=== PATIENT | female | born 1950 | race Caucasian/White ===

== ENCOUNTER 2022-02-22 10:40 | Outpatient (CLI) | payer MEDICARE, BC, SELFPAY | END 2022-02-22 10:41 | disposition home or self-care (01) | LOC: NFLDUCREF 03-03 10:23 | PROVIDERS: PCP Internal Medicine; Visit Provider Nurse Practitioner Family | DX: R30.0 Dysuria (principal); N39.0 Urinary tract infection, site not specified | CPT/HCPCS: 87086; 87186 ==

== ENCOUNTER 2022-03-18 10:32 | Outpatient (CLI) | payer MEDICARE, BC, SELFPAY | END 2022-03-18 10:33 | disposition home or self-care (01) | PROVIDERS: PCP Internal Medicine; Visit Provider Family Medicine | DX: R39.9 Unspecified symptoms and signs involving the genitourinary system (principal) | CPT/HCPCS: 87086; 87186 ==

== ENCOUNTER 2025-02-06 20:25 | Emergency (ER) | payer MEDICARE, BC, SELFPAY ==
--- OUTSIDE RECORDS SUMMARY | 2024-12-28 14:00 | XMS_ITS | Encounter Summary ---
[facility] Address [address] [place] [address] Care Team Providers Care Embossed Or Impressed Lettering Painter Name Role Phone Jane Blanca M.D. Primary Care Provider [phone] Reason for Referral * Outpatient (Routine) - Closed Specialty Diagnoses / Procedures Referred By Mukesh ugarte Referred To Contact Diagnoses Pain Neck Procedures US Head Neck Soft Tissue Jane Blanca M.D. [address] [place] [address] Phone: tel: fax: [facility] Region Referral ID Status Reason Start Date Expiration Date Visits Re quested Visits Authorized [id number] Closed 12/28/2024 03/30/2026 1 1 * Gastrointestinal (Routine) - Authorized Specialty Diagnoses / Procedures Referred By Mukesh ugarte Referred To Contact Diagnoses Polyp Of Stomach And Duodenum Procedures Enteroscopy Thru Stoma Jane Blanca M.D. [address] [place] [address] Phone: tel: fax: [facility] Referral ID Status Reason Start Date Expiration Date V isits Requested Visits Authorized [id number] Authorized 12/28/2024 03/30/2026 1 1 * Outpatient (Routine) - Authorized Specialty Diagnoses / Procedures Referred By Mukesh ugarte Referred To Contact Physical Therapy Diagnoses Pain Neck Jane Blanca M.D. [address] [place] [address] Phone: tel: fax: Referral ID Status Reason Start Date Expiration Date V isits Requested Visits Authorized [id number] Authorized 12/28/2024 06/29/2026 1 1 Reason for Visit * Reason Comments Neck Pain Headaches, dry mouth and not sleeping well * Appointment Request (Routine) - Closed Specialty Diagnoses / Procedures Referred By Mukesh ugarte Referred To Contact Family Medicine Referral ID Status Reason Start Date Expiration Date Visits Re quested Visits Authorized [id number] Closed 12/21/2024 03/23/2026 1 1 Encounter Details Date Type Department Care Team (Late st Contact Info) Description 12/28/2024 3:00 PM CDT Office Visit Department of Family Medicine, [facility], in [place], [place] [address] [place] [phone] Jane Blanca M.D. [address] [place] [phone] Pain Neck (Primary Dx); Lymphadenopathy; Polyp Of Stomach And Duodenum; Headache Unspecified; Insomnia; Dry Mouth Unspecified Social History Tobacco Use Types Packs/Day Years Used Date Smoking Tobacco: Never Smokeless Tobacco: Never Tobacco Cessation:Counseling Given: Not Answered Alcohol Use Standard Drinks/Week Comments Yes 2 (1 standard drink = 0.6 oz pur e alcohol) [facility] Utilities Answer Date Recorded In the past 12 months has [facility] [employer], gas, oil, or water [employer] threatened to shut off services in your home? No 09/28/2024 Humiliation, Afraid, Rape, and Kick questionnair e Answer Date Recorded Within the last year, have y ou been afraid of your partner or ex-partner? No 05/30/2024 Within the last year, have y ou been humiliated or emotionally abused in other ways by your partner or ex-partner? No Within the last year, have y ou been kicked, hit, slapped, or otherwise physically hurt by your partner or ex-partner? No 05/30/2024 Within the last year, have y ou been raped or forced to have any kind of sexual activity by your partner or ex-partner? No 05/30/2024 Hunger Vital Sign Answer Date Recorded Within the past 12 months, y ou worried that your food would run out before you got the money to buy more. Never true 09/29/19 Within the past 12 months, t he food you bought just didn't last and you didn't have money to get more. Never true 09/28/2024 PRAPARE - Transportation Answer Date Re corded In the past 12 months, has l ack of transportation kept you from medical appointments or from getting medications? No 09/12 In the past 12 months, has l ack of transportation kept you from meetings, work, or from getting things needed for daily living? No 09/28/2024 Housing Stability Answer Date Recorded What is your living situation today? I have a [facility] place to live 09/28/2024 Education Answer Date Recorded What is the highest level of school you have completed or the highest degree you have received? 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 Gender Identity Female 12/08/2019 3:03 PM CDT Sexual Orientation Straight 12/08/2019 3: 03 PM CDT documented as of this encounter Last Filed Vital Signs Vital Sign Reading Time Taken Comments Blood Pressure 104/70 12/28/2024 2:[address] rage Pulse 89 12/28/2024 2:51 PM CDT Temperature 36.5 C (97.7 F) 12/28/2024 2:51 PM CDT Respiratory Rate 16 12/28/2024 2:51 PM CDT Oxygen Saturation - - Inhaled Oxygen Concentration - - Weight 76.5 kg (168 lb 12.2 oz) 12/28/2024 2:51 PM CDT Height 164 cm (5' 4.57) 12/28/2024 2:51 PM CDT Body Mass Index 28.46 12/28/2024 2:51 PM CDT documented in this encounter Progress Notes * Jane Blanca M.D. - 12/28/2024 3:00 PM CDT DATE OF VISIT: 12/28/2024 SUBJECTIVE CHIEF COMPLAINT / REASON FOR VISIT Magnolia Blank is a 74 y.o. female with past medical history significant for anxiety, osteoporosis, skin cancer, hyperlipidemia, atrial hernia, GERD, duodenal polyps, cecal polyps, colonic polyps, diverticulosis, dry eye syndrome, status post TVH, BSO, vaginal colpopexy, anterior vaginal repair, and posterior vaginal repai who presents for evaluation of Neck Pain (Headaches, dry mouth and not sleeping well). The patient verbally consented to an audio recording of their visit to assist with the completion of documentation. History of Present Illness Mrs. Magnolia Blank is a 74 year old female who presents with neck pain and severe dry mouth. Neck pain - Neck pain present for approximately 5-6 months, onset following surgery in May - Pain described as stinging and burning, primarily on the right side - Associated with sensation of 'stiff neck' and tight, burning muscles - Pain is intermittent, lasting from seconds to about half an hour - Pain intensity ranges from 1 to 6 on a pain scale - No relief with changing pillows (tried twice) - No use of [id number] medications for pain - No numbness or tingling in arms or hands - No pain with specific neck movements Xerostomia (dry mouth) - Severe dry mouth since May, primarily nocturnal - No symptoms of dehydration - Reduced water intake due to bladder issues post-hysterectomy - History of Vesicare and Myrbetriq use, discontinued due to side effects - Currently using Xiidra for severe dry eyes, which she associates with dry mouth - Denies mouth breathing at night; (hard of hearing) has not noticed mouth breathing Headache - Dull, moving headaches located in the occipital area and both sides of the head Other associated symptoms - No vision problems - No dysphagia - No numbness or tingling in extremities - Blood pressure tends to run low OBJECTIVE VITAL SIGNS BP 104/70 (BP Location: Left arm, Patient Position: Sitting, Cuff Size: Regular) Comment: average Pulse 89 Temp 36.5 ??C (Temporal) Resp 16 Ht 164 cm Wt 76.5 kg BMI 28.46 kg/m?? Physical Exam Constitutional Appearance: She is well-developed. HENT Head: Normocephalic and atraumatic. Comments: Approximately 2 cm lymph node noticed on the right side of the neck with tenderness. There is 1 cm on the other side. Otherwise no lymphadenopathy noted Right Ear: External ear normal. Left Ear: External ear normal. Nose: Nose normal. Eyes Conjunctiva/sclera: Conjunctivae normal. Pupils: Pupils are equal, round, and reactive to light. Cardiovascular Rate and Rhythm: Normal rate and regular rhythm. Heart sounds: Normal heart sounds. Pulmonary Effort: Pulmonary effort is normal. No respiratory distress. Breath sounds: Normal breath sounds. Abdominal General: Bowel sounds are normal. There is no distension. Palpations: Abdomen is soft. There is no mass. Tenderness: There is no abdominal tenderness. There is no guarding. Musculoskeletal General: Normal range of motion. Cervical back: Normal range of motion and neck supple. Skin General: Skin is warm and dry. Neurological Mental Status: She is alert and oriented to person, place, and time. Deep Tendon Reflexes: Reflexes are normal and symmetric. Psychiatric Behavior: Behavior normal. ASSESSMENT/ PLAN Pain Neck Lymphadenopathy Tender lymph nodes on the right side of the neck, present for approximately six months. Differential diagnosis includes infection or malignancy. . Ultrasound and blood work planned to rule out serious conditions. - Order ultrasound of the neck to evaluate lymph nodes - Perform blood work including CRP and infectious mononucleosis test - Swab for strep throat Orders: External referral ancillary (non-[place]) CBC with Differential, Blood; Future Group A Streptococcus PCR, Throat US Head Neck Soft Tissue; Future Infectious Mononucleosis, Rapid Test; Future CRP (C-Reactive Protein); Future Polyp Of Stomach And Duodenum Orders: Enteroscopy Thru Stoma; Future Tubular adenoma and duodenal polyps. Previous colonoscopy in 2021 showed diverticulitis, with a recommendation to repeat in five years. Endoscopy in 2021 recommended a repeat small bowel enteroscopy in three years for surveillance of duodenal polyps. She agreed to proceed with the recommended surveillance. - Schedule small bowel enteroscopy in February for surveillance of duodenal polyps Headache Unspecified Insomnia Dull, bilateral headache, possibly related to dehydration and hypotension. Decreased fluid intake and frequent nocturia post-hysterectomy may contribute to dehydration. Magnesium glycinate suggested as a non-prescription option to aid sleep and potentially reduce headache frequency. Patient preferred supplements over medications. - Encourage increased fluid intake during the day - Consider magnesium glycinate 400 mg in the evening to aid sleep and potentially reduce headache frequency Dry Mouth Unspecified Severe dry mouth primarily at night. Decreased fluid intake during the day may contribute to nighttime dryness. Nocturnal mouth breathing suspected. History of dry eyes and use of medications that can cause dry mouth, but these have been discontinued. Mouth taping and humidifier use suggested as initial non-invasive interventions. - Advise mouth taping at night to prevent mouth breathing - Recommend use of a humidifier at night - Encourage increased fluid intake during the day, aiming for 64 ounces documented in this encounter Plan of Treatment Upcoming Encounters Date Type Department Care Team (Late st Contact Info) Description 10/01/2025 9:00 AM CDT Office Visit Department of Family Medicine, [facility], in [address] [phone] Jane Blanca M.D. [address] [place] [phone] Scheduled Orders Name Type Priority Associated Diagnoses Orde r Schedule Enteroscopy Thru Stoma GI Routine Polyp Of Stomach And Duodenum Expected: 12/28/2024, Expires: 03/30/2026 documented as of this encounter Procedures Procedure Name Priority Date/Time Associated Diagnosis Comments GROUP A STREP PCR, THROAT Routine 12/28/2024 3:41 PM CDT Lymphadenopathy documented in this encounter Results * US Head Neck Soft Tissue (01/01/2025 2:57 PM CDT) Anatomical Region Laterality Modality Head and Neck, Ultrasound RS T LOS, Ultrasound ARZ LOS, Ultrasound FLA LOS N/A Ultrasound Impressions 01/01/2025 3:33 PM CDT Targeted ultrasound of the right and left neck demonstrates multiple benign- appearing subcentimeter cervical lymph nodes with normal fatty robi. No worrisome sonographic findings. Narrative 01/01/2025 3:33 PM CDT EXAM: US HEAD NECK SOFT TISSUE COMPARISON: None FINDINGS: See impression. Procedure Note Lefty Fernandez M.D. - 01/01/2025 EXAM: US HEAD NECK SOFT TISSUE COMPARISON: None FINDINGS: See impression. IMPRESSION: Targeted ultrasound of the right and left neck demonstrates multiplebenign- appearing subcentimeter cervical lymph nodes with normal fattyhila. No worrisome sonographic findings. us Jane Blanca M.D. IMG US PROCEDURES Final Resu lt * (ABNORMAL) CRP (C-Reactive Protein) (12/28/2024 4:07 PM CDT) C-Reactive Protein (CRP), P 5.1(H) <5.0 mg/L 12/28/2024 6:05 PM CDT OWAT Blood (Blood, Venous) 12/28/2024 4:07 PM CDT 12/28/2024 5:48 PM CDT us Jane Blanca M.D. LAB BLOOD ADD-ON Final Resul t [facility] [address] [place] [address], [facility] in [place] [address] [place] [address] * Infectious Mononucleosis, Rapid Test (12/28/2024 4:07 PM CDT) Infectious Geary Test, B Negative Negative 12/28/2024 6:11 PM CDT OWAT Blood (Blood, Venous) 12/28/2024 4:07 PM CDT 12/28/2024 5:53 PM CDT us Jane Blanca M.D. LAB MICROBIOLOGY - BLOOD ORD ERABLES Final Result [facility] [address] [place] [address], [place] [facility] in [place] [address] [place] [address] * CBC with Differential, Blood (12/28/2024 4:07 PM CDT) Hemoglobin 13.9 11.6 - 15.0 g/dL 12/28/2024 5:57 PM CDT OWAT Hematocrit 42.4 35.5 - 44.9 % 12/28/2024 5:57 PM CDT OWAT Erythrocytes 4.47 3.92 - 5.13 x10(12)/L 12/28/2024 5:57 PM CDT OWAT MCV 94.9 78.2 - 97.9 fL 12/28/2024 5:57 PM CDT OWAT RBC Distrib Width 12.7 12.2 - 16.1 % 12/28/2024 5:57 PM CDT OWAT Platelet Count 279 157 - 371 x10(9)/L 12/28/2024 5:57 PM CDT OWAT Leukocytes 6.3 3.4 - 9.6 x10(9)/L 12/28/2024 5:57 PM CDT OWAT Neutrophils 3.63 1.56 - 6.45 x10(9)/L 12/28/2024 5:57 PM CDT OWAT Lymphocytes 2.06 0.95 - 3.07 x10(9)/L 12/28/2024 5:57 PM CDT OWAT Monocytes 0.46 0.26 - 0.81 x10(9)/L 12/28/2024 5:57 PM CDT OWAT Eosinophils 0.15 0.03 - 0.48 x10(9)/L 12/28/2024 5:57 PM CDT OWAT Basophils <0.03 0.01 - 0.08 x10(9)/L 12/28/2024 5:57 PM CDT OWAT Blood (Blood, Venous) 12/28/2024 4:07 PM CDT 12/28/2024 5:53 PM CDT us Jane Blanca M.D. LAB BLOOD ADD-ON Final Resul t Performing Organization Address City/[facility]/ZIP Co de Phone Number [facility] [address] [place] [address], [place] [facility] [facility] in [place] [address] [place] [address] * Group A Streptococcus PCR, Throat (12/28/2024 3:41 PM CDT) Group A Streptococcus PCR, Throat Negative Negative 12/28/2024 6:31 PM CDT OWAT Swab (Throat) 12/28/2024 3:4 1 PM CDT 12/28/2024 5:46 PM CDT us Jane Blanca M.D. LAB MICROBIOLOGY - GENERAL O RDERABLES Final Result Performing Organization Address City/[facility] Co de Phone Number [facility] [address] [place] [address], [place] [facility] [facility] in [place] [address] [place] [address] documented in this encounter Visit Diagnoses Diagnosis Pain Neck- Primary Lymphadenopathy Polyp Of Stomach And Duodenum Headache Unspecified Insomnia Dry Mouth Unspecified Pain Neck documented in this encounter Care Teams Embossed Or Impressed Lettering Painter Relationship Specialty Start Date End Date Jane Blanca M.D. [address] [place] [address] Reza ARNALDO [place] [phone] PCP - General Family Medicine 07/16/22 [facility] 09/29/23 documented as of this encounter
--- OUTSIDE RECORDS SUMMARY | 2024-12-28 14:50 | XMS_ITS | Encounter Summary ---
Author Organization [facility] Address [address] [place] [address] Care Team Providers Care Industrial Renderer Name Role Phone Jane Blanca M.D. Primary Care Provider [phone] Encounter Details Date Type Department Care Team (Latest Contact Info) Description 12/28/2024 3:50 PM CDT - 12/28/2024 11:59 PM CDT Hospital Encounter Department of Laboratory Medicine in [place], [place] [address] [place] [phone] Jane Blanca M.D. [address] [place] [address] Lymphadenopathy; Pain Neck Discharge Disposition: Home or Self Care Social History Tobacco Use Types Packs/Day Years Used Date Smoking Tobacco: Never Smokeless Tobacco: Never Alcohol Use Standard Drinks/Week Comments Yes 2 (1 standard drink = 0.6 oz pur e alcohol) [facility] Utilities Answer Date Recorded In the past 12 months has e electric, gas, oil, or water company threatened to shut off services in your [...] money to buy more. Never true 09/29/19 25 Within the past 12 months, t he [...] your living situation today? I have a [facility] place to live 09/28/2024 Education Answer Date Recorded What is the highest level of school you have completed or the highest degree you have received? 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 05/30/2024 ascorbic acid, vitamin C, (VITAMIN C) 1,000 mg tablet Take by mouth daily. 08/24/2007 calcium carbonate/vitam in D3 (CALCIUM 600 + D,3, ORAL) Take by mouth daily. 05/10/2007 carboxymethylce llulose sodium (REFRESH CELLUVISC OPHT) Administer 1 drop into affected eye(s) as needed. diclofenac sodium (Voltaren) 1 % gel Apply 2 g topically as needed. EPINEPHrine 0.3 mg/0.3 mL injection syringe Inject 0.3 mL (0.3 mg total) intramuscularly as needed for anaphylaxis. 2 each 3 07/21/2024 hydroquinone 4 % cream Apply to dark spots on face one time daily at bedtime for 3 months. Then take one month break.* 11/11/2023 ibuprofen 200 mg tablet Take 1-2 tablets (200-400 mg total) by mouth every 6 (six) hours as needed for pain. 05/30/2024 lifitegrast (Xiidra) 5 % ophthalmic solution Administer 1 drop into both eyes 2 (two) times a day. 180 each 3 11/03/2024 multivitamin (MULTIPLE VITAMIN ESSENTIAL ORAL) Take by mouth daily. 04/28/2007 omega 4-sal-ugw-fish oil (Fish Oil) 100-160-1,000 mg capsule Take by mouth daily. 05/10/2007 polyvinyl alcohol/povidon e/PF (REFRESH CLASSIC, PF, OPHT) Administer 1 drop into affected eye(s) as needed (Dry Eye). rosuvastatin (Crestor) 5 mg tablet TAKE ONE TABLET BY MOUTH ONE TIME DAILY 90 tablet 3 08/08/2024 estradioL (Estrace) 0.1 mg/g (0.01%) vaginal creamIndication s:Prolapse Vaginal,Cystoce le Midline Apply 1 gram to vaginal opening at bedtime twice a week. 42.5 g 3 01/04/2024 01/26/20 25 white petrolatum-mine ral oiL 94-3 % ointment Apply 0.25 inches to both eyes 3 (three) times a day as needed (Dry Eye). 01/17/20 25 documented as of this encounter Plan of Treatment Upcoming Encounters Date Type Department Care Team (Late st Contact Info) Description 10/01/2025 9:00 AM CDT Office Visit Department of Family Medicine, [facility], in [place] [address] [place] [phone] Jane Blanca M.D. [address] [place] [address] [place] [phone] documented as of this encounter Procedures Procedure Name Priority Date/Time Associated Diagnosis Comments INFECTIOUS MONONUCLEOSIS, RAPID TEST, S/B Routine 12/28/2024 4:07 PM CDT Pain Neck CBC WITH DIFFERENTIAL, B Routine 12/28/2024 4:07 PM CDT Lymphadenopathy C-REACTIVE PROTEIN (CRP), S/P Routine 12/28/2024 4:07 PM CDT Pain Neck documented in this encounter Results * (ABNORMAL) CRP (C-Reactive Protein) (12/28/2024 4:07 PM CDT) C-Reactive Protein (CRP), P 5.1(H) <5.0 mg/L 12/28/2024 6:05 PM CDT OWAT Blood (Blood, Venous) 12/28/2024 4:07 PM CDT 12/28/2024 5:48 PM CDT us Jane Blanca M.D. LAB BLOOD ADD-ON Final Resul t [facility] [address] [place] [address], [place] [facility] in [place] [address] [place] [address] * Infectious Mononucleosis, Rapid Test (12/28/2024 4:07 PM CDT) Infectious Foster Test, B Negative Negative 12/28/2024 6:11 PM CDT OWAT Blood (Blood, Venous) 12/28/2024 4:07 PM CDT 12/28/2024 5:53 PM CDT us Jane Blanca M.D. LAB MICROBIOLOGY - BLOOD ORD ERABLES Final Result [facility] [address] [place] [address], [place] [facility] [facility] [place] [address] [place] [address] * CBC with Differential, Blood (12/28/2024 4:07 [...] CDT 12/28/2024 5:53 PM CDT us Jane Blacna M.D. LAB BLOOD ADD-ON Final Resul t [facility] [address] [place] [address], [facility] in [place] [address] [place] [address] documented in this encounter Visit Diagnoses Diagnosis Lymphadenopathy Pain Neck documented in this encounter Care Teams Industrial Renderer Relationship Specialty Start Date End Date Jane Blanca M.D. [address] [place] [phone] PCP - General Family Medicine 07/16/22 [facility] 09/29/23 documented as of this encounter
--- OUTSIDE RECORDS SUMMARY | 2025-01-01 13:21 | XMS_ITS | Encounter Summary ---
Author Organization [facility] Address [address] [place] [address] Care Team Providers Care Grain Elevator Motor Starter Name Role Phone Jane Blanca M.D. Primary Care Provider Reason for Referral * Outpatient (Routine) - Closed Specialty Diagnoses / Procedures Referred By Mukesh ugarte Referred To Contact Diagnoses Pain Neck Procedures US Head Neck Soft Tissue Jane Blanca M.D. [address] [place] [address] Phone: tel: fax: [facility] Region Referral ID Status Reason Start Date Expiration Date Visits Re quested Visits Authorized [id number] Closed 12/28/2024 03/30/2026 1 1 Reason for Visit * Outpatient (Routine) - Closed Specialty Diagnoses / Procedures Referred By Mukesh ugarte Referred To Contact Diagnoses Pain Neck Procedures US Head Neck Soft Tissue Jane Blanca M.D. [address] [place] [address] Phone: tel: fax: [facility] Region Referral ID Status Reason Start Date Expiration Date Visits Re quested Visits Authorized [id number] Closed 12/28/2024 03/30/2026 1 1 Encounter Details Date Type Department Care Team (Latest Contact Info) Description 01/01/2025 2:21 PM CDT - 01/01/2025 11:59 PM CDT Hospital Encounter Department of Radiology in [place], [place] [address] [place] [address] Jane Blanca M.D. [address] [place] [address] Pain Neck Discharge Disposition: Home or Self Care Social History Tobacco Use Types Packs/Day Years Used Date Smoking Tobacco: Never Smokeless Tobacco: Never Alcohol Use Standard Drinks/Week Comments Yes 2 (1 standard drink = 0.6 oz pur e alcohol) [facility] Utilities Answer Date Recorded In the past 12 months has e [employer], gas, oil, or water [employer] threatened to shut off services in your [...] your living situation today? I have a [facility] place to live 09/28/2024 Education Answer Date Recorded What is the highest level of school you have completed or the highest degree you have received? 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 04/28/2007 omega 1-tji-nzt-fish oil (Fish Oil) 100-160-1,000 mg capsule Take [...] a week. 42.5 g 3 01/04/2024 01/26/20 white petrolatum-mine ral oiL 94-3 % ointment Apply 0.25 inches to both eyes 3 (three) times a day as needed (Dry Eye). 01/17/20 25 documented as of this encounter Plan of Treatment Upcoming Encounters Date Type Department Care Team (Late st Contact Info) Description 10/01/2025 9:00 AM CDT Office Visit Department of Family Medicine, [facility], in [address] [address] Jane Blanca M.D. [address] [place] [phone] documented as of this encounter Procedures Procedure Name Priority Date/Time Associated Diagnosis Comments US HEAD NECK SOFT TISSUE RAD - Routine (most inpatients and all outpatients) 01/01/2025 2:57 PM CDT Pain Neck documented in this encounter Results * US [...] M.D. IMG US PROCEDURES Final Resu lt documented in this encounter Visit Diagnoses Diagnosis Pain Neck documented in this encounter Care Teams Grain Elevator Motor Starter Relationship Specialty Start Date End Date Jane Blanca M.D. [address] [place] [phone] PCP - General Family Medicine 07/16/22 [facility] 09/29/23 documented as of this encounter
--- OUTSIDE RECORDS SUMMARY | 2025-01-08 09:00 | XMS_ITS | Encounter Summary ---
Author Organization [facility] Address [address] [place] [address] Care Team Providers Care Landscape Drafter Name Role Phone Jane Blanca M.D. Primary Care Provider Reason for Referral * MRI/CAT/PET Scan (Routine) - Closed Specialty Diagnoses / Procedures Referred By Mukesh ugarte Referred To Contact Radiology Diagnoses Lymphadenopathy Cervical Procedures CT Neck Soft Tissue with IV Contrast Jaz Pal P.A.-CCarolee [address] [place] [address] Phone: tel: fax: [facility] Region Referral ID Status Reason Start Date Expiration Date Visits Re quested Visits Authorized [id number] Closed 01/08/2025 04/10/2026 1 1 Reason for Visit * Outpatient (Routine) - Closed Specialty Diagnoses / Procedures Referred By Mukesh ugarte Referred To Contact Otorhinolaryngology Diagnoses Lymphadenitis Cervical Jane Blanca M.D. [address] [place] [phone] Phone: tel: fax: [facility] Region Referral ID Status Reason Start Date Expiration Date Visits Re quested Visits Authorized [id number] Closed 01/02/2025 07/04/2026 1 1 Encounter Details Date Type Department Care Team (Latest Contact Info) Description 01/08/2025 10:00 AM CDT Comprehensive Visit Department of Otorhinolaryngology in [place], [place] [address] [place] [address] Jaz Pal P.A.-C. [address] [place] [address] Lymphadenopathy Cervical (Primary Dx); Pain Neck; Xerostomia Social History Tobacco Use Types Packs/Day Years Used Date Smoking Tobacco: Never Smokeless Tobacco: Never Alcohol Use Standard Drinks/Week Comments Yes 2 (1 standard drink = 0.6 oz pur e alcohol) [facility] Utilities Answer Date Recorded In the past 12 months has [facility] [employer], gas, oil, or water [employer] threatened to shut off services in your [...] AM CDT Legal Sex Female 3:16 AM CRIPPLE CUTTER Gender Identity Female 12/08/2019 3:03 PM CDT Sexual Orientation Straight 12/08/2019 3: 03 PM CDT documented as of this encounter Consult Notes * Jaz Pal P.A.-C. - 01/08/2025 10:00 AM CDT SUBJECTIVE CHIEF COMPLAINT/REASON FOR VISIT Neck pain, fluctuating cervical adenopathy, dry mouth REFERRING PROVIDER Jane Blanca M.D. HISTORY OF PRESENT ILLNESS Magnolia Blank is seen today in consultation for evaluation of neck pain with fluctuating cervicaladenopathy. Past medical history is significant for generalized anxiety disorder, cataracts, ulcerative colitis, dry eyes, GERD, hyperlipidemia. Approximately 5-6 months ago patient began to notice neck aching and tenderness. This fluctuates inseverity and sometimes will resolve, but is present more than not. The right side is usually more achy than the left. Today the right posterior neck and right trapezius musculature all the way out tothe shoulder are sore and painful. This was not associated with any injury. No history of surgery to the neck or throat. Over the last several months she has also noted some fluctuating nodes or nodules in her bilateral neck. There was 1 large fluctuating mass oriented in a vertical fashion in the left neck in the past that was almost 4 cm in length per patient description. This has now resolved. She has been waking up with a very dry mouth in the mornings, this has also been present over the last half a year. She does utilize a bite guard while sleeping, has had this for 6 years. Her only new medicine is Xiidra ophthalmic solution for dry eyes. She notes the neck discomfort is present even at rest, not just with movement. No dysphagia or dysphonia. She did undergo ultrasound of head and neck 01/01/2025 which showed multiple benign-appearing subcentimeter cervical nodes with normal fatty robi, no worrisome sonographic findings. The following portions of the patient's history were reviewed: allergies, current medications, problem list, family history, medical history, social history and surgical history OBJECTIVE PHYSICAL EXAMINATION GENERAL: Patient is alert, oriented, and in no acute distress. Respirations are quiet and unlabored. Vocal quality is normal. HEAD: Normocephalic and atraumatic. Skin on head and neck normal. EARS: External ears normal bilaterally. External ear canals normal bilaterally. Tympanic membranes are normal bilaterally with clear middle ears. NOSE: External nasal exam normal. Intranasal exam reveals midline septum. No turbinate hypertrophy,polyps, or drainage. ORAL: Oral cavity, including tongue and floor of mouth, is without lesions. She appears to have normal salivary flow from both Durham's and Stensen's ducts. No palpable stones. OROPHARYNX: Tonsils without hypertrophy, erythema, or exudate. NASOPHARYNX: Indirect examination reveals nothing obstructive. Oropharynx and nasopharynx are both slightly dry. LARYNX: Indirect laryngoscopy reveals normal larynx and hypopharynx. Vocal cord mobility is normal to the midline. NECK: Palpation of neck reveals no masses, adenopathy, or asymmetry. No thyromegaly. She has some tenderness with palpation of sternocleidomastoid and trapezius musculature fdubl-[id number]-ecil-left. Full range of motion of cervical spine noted. ASSESSMENT / PLAN 1. Neck pain 2. Reactive lymphadenopathy 3. Xerostomia, nocturnal Thankfully I do not see anything suspicious on today's physical examination, but given the durationof time and persisting symptoms we will pursue neck CT. I will call or send a portal message with these results. If this is unremarkable would recommend physical therapy for musculoskeletal neck discomfort. She is comfortable with this plan. Jaz Pal P.A.-C. documented in this encounter Plan of Treatment Upcoming Encounters Date Type Department Care Team (Late st Contact Info) Description 10/01/2025 9:00 AM CDT Office Visit Department of Family Medicine, [facility], in [place], [place] [address] [facility] [place] [phone] Jane Blanca M.D. [address] [place] [phone] documented as of this encounter Results * CT Neck Soft Tissue with IV Contrast (01/15/2025 2:36 PM CRIPPLE CUTTER) Anatomical Region Laterality Modality Neck, Neuroradiology RST LOS , Neuroradiology ARZ LOS, Neuroradiology FLA LOS N/A Computed Tomography 01/15/2025 2:28 PM CRIPPLE CUTTER Impressions 01/15/2025 2:58 PM CRIPPLE CUTTER No abnormal neck mass or adenopathy. Narrative 01/15/2025 2:58 PM CRIPPLE CUTTER EXAM: CT NECK SOFT TISSUE WITH IV CONTRAST COMPARISON: Ultrasound 01/01/2025 FINDINGS: No lymphadenopathy, abnormal mass or fluid collection. Major muscular, glandular and vascular structures are unremarkable. Left carotid bifurcation atherosclerosis. No acute or aggressive appearing osseous lesion. Cervical spondylosis and bilateral temporomandibular arthrosis. Visualized portions of brain and skull base are unremarkable. Intracranial atherosclerosis. Bilateral pseudophakia and left scleral buckle. Mild dependent atelectasis. Procedure Note Blaire Burks M.D. - 01/15/2025 EXAM: CT NECK SOFT TISSUE WITH IV CONTRAST COMPARISON: Ultrasound 01/01/2025 FINDINGS: No lymphadenopathy, abnormal mass or fluid collection. Majormuscular, glandular and vascular structures are unremarkable. Left carotidbifurcation atherosclerosis. No acute or aggressive appearing osseouslesion. Cervical spondylosis and bilateral temporomandibular arthrosis.Visualized portions of brain and skull base are unremarkable. Intracranialatherosclerosis. Bilateral pseudophakia and left scleral buckle. Milddependent atelectasis. IMPRESSION: No abnormal neck mass or adenopathy. us Jaz L Kae P.A.-C. IMG CT PROCEDURES Final R esult * Creatinine with Estimated GFR (01/08/2025 10:26 AM CDT) Creatinine 0.70 0.59 - 1.04 mg/dL 01/08/2025 1:48 PM CDT OWAT Estimated GFR (eGFR) >90 >=60 mL/min/BSA 01/08/2025 1:48 PM CDT OWAT Comment: Estimated GFR calculated using the 2020 CKD_EPI creatinine equation. Blood (Blood, Venous) 01/08/2025 10:26 AM CDT 01/08/2025 1:06 PM CDT us Jaz Pal P.A.-C. LAB BLOOD ADD-ON Final Re sult Performing Organization Address City/[facility]/ZIP Co de Phone Number [facility] [address] [place] [address], [facility] OWAT [facility] [place] [address] [place] [address] documented in this encounter Visit Diagnoses Diagnosis Lymphadenopathy Cervical- Primary Pain Neck Xerostomia Lymphadenopathy Cervical documented in this encounter Care Teams Landscape Drafter Relationship Specialty Start Date End Date Jane Blanca M.D. [address] [place] [phone] PCP - General Family Medicine 07/16/22 [facility] 09/29/23 documented as of this encounter
--- OUTSIDE RECORDS SUMMARY | 2025-01-08 09:19 | XMS_ITS | Encounter Summary ---
Author Organization [facility] Address [address] [place] [address] Care Team Providers Care Gas Cutting Machine Operator Name Role Phone Jane Blanca M.D. Primary Care Provider Encounter Details Date Type Department Care Team (Latest Contact Info) Description 01/08/2025 10:19 AM CDT - 01/08/2025 11:59 PM CDT Hospital Encounter Department of Laboratory Medicine in [place], [place] [address] [place] [phone] Jaz Pal, P.ACarolee-CCarolee [address] [place] [phone] Lymphadenopathy Cervical Discharge Disposition: Home or Self Care Social History Tobacco Use Types Packs/Day Years Used Date Smoking Tobacco: Never Smokeless Tobacco: Never Alcohol Use Standard Drinks/Week Comments Yes 2 (1 standard drink = 0.6 oz pur e alcohol) [facility] Utilities Answer Date Recorded In the [...] your living situation today? I have a [facility] place to live 09/28/2024 Education Answer Date Recorded What is the highest level of school you have completed or the highest degree you have received? Some college, no degree 11/22/2021 Comments No Sex and Gender Information Value Date Recorded Sex Assigned at Female 12/05/2020 9:17 AM CDT Legal Sex Female 3:16 AM HAT PARTS CUTTER MACHINE Gender Identity Female 12/08/2019 3:03 PM CDT [...] ORAL) Take by mouth daily. 04/28/2007 omega 5-pgr-xag-fish oil (Fish Oil) 100-160-1,000 mg capsule Take [...] Office Visit Department of Family Medicine, [facility], [address] [phone] Jane Blanca M.D. [address] [facility] [place] [phone] documented as of this encounter Procedures Procedure Name Priority Date/Time Associated Diagnosis Comments CREATININE WITH EGFR, S/P Routine 01/08/2025 10:26 AM CDT Lymphadenopathy Cervical documented in this encounter Results * Creatinine with Estimated GFR (01/08/2025 10:26 AM CDT) Creatinine 0.70 0.59 - 1.04 mg/dL 01/08/2025 1:48 PM CDT OWAT Estimated GFR (eGFR) >90 >=60 mL/min/BSA 01/08/2025 1:48 PM CDT OWAT Comment: Estimated GFR calculated using the 2020 CKD_EPI creatinine equation. Blood (Blood, Venous) 01/08/2025 10:26 AM CDT 01/08/2025 1:06 PM CDT us Jaz Pal P.A.-C. LAB BLOOD ADD-ON Final Re sult [facility] [address] [place] [address], [facility] OWAT [facility] in [place] [address] [place] [address] documented in this encounter Visit Diagnoses Diagnosis Lymphadenopathy Cervical documented in this encounter Care Teams Gas Cutting Machine Operator Relationship Specialty Start Date End Date Jane Blanca M.D. [address] [facility] [place] [phone] PCP - General Family Medicine 07/16/22 [facility] 09/29/23 documented as of this encounter
--- OUTSIDE RECORDS SUMMARY | 2025-01-15 13:59 | XMS_ITS | Encounter Summary ---
Author Organization [facility] Address [address] [place] [address] Care Team Providers Care Learning Program Manager Name Role Phone Jane Blanca M.D. Primary Care Provider [phone] Reason for Referral * MRI/CAT/PET Scan (Routine) - Closed Specialty Diagnoses / Procedures Referred By Mukesh ugarte Referred To Contact Radiology Diagnoses Lymphadenopathy Cervical Procedures CT Neck Soft Tissue with IV Contrast Jaz Pal P.A.-C. [address] [place] [phone] Phone: tel: fax: [facility] Region Referral ID Status Reason Start Date Expiration Date Visits Re quested Visits Authorized [id number] Closed 01/08/2025 04/10/2026 1 1 CH GRINDER Reason for Visit * MRI/CAT/PET Scan (Routine) - Closed Specialty Diagnoses / Procedures Referred By Mukesh ugarte Referred To Contact Radiology Diagnoses Lymphadenopathy Cervical Procedures CT Neck Soft Tissue with IV Contrast Jaz Pal P.A.-CCarolee [address] [place] [phone] Phone: tel: fax: [facility] Region Referral ID Status Reason Start Date Expiration Date Visits Re quested Visits Authorized [id number] Closed 01/08/2025 04/10/2026 1 1 Encounter Details Date Type Department Care Team (Latest Contact Info) Description 01/15/2025 1:59 PM BROACH GRINDER - 01/15/2025 11:59 PM BROACH GRINDER Hospital Encounter Department of Radiology in [place], [place] [address] [place] [address] Jaz Pal P.A.-C. [address] [place] [address] Lymphadenopathy Cervical Discharge Disposition: Home or Self Care Social History Tobacco Use Types Packs/Day Years Used Date Smoking Tobacco: Never Smokeless Tobacco: Never Alcohol Use Standard Drinks/Week Comments Yes 2 (1 standard drink = 0.6 oz pur e alcohol) [facility] Utilities Answer Date Recorded In the past 12 months has e electric, gas, oil, or water [employer] threatened to shut off services in your [...] your living situation today? I have a [facility] place to live 09/28/2024 Education Answer Date Recorded What is the highest level of school you have completed or the highest degree you have received? Some college, no degree 11/22/2021 Comments No Sex and Gender Information Value Date Recorded Sex Assigned at Female 12/05/2020 9:17 AM CDT Legal Sex Female 3:16 AM BROACH GRINDER Gender Identity Female 12/08/2019 3:03 PM CDT [...] ORAL) Take by mouth daily. 04/28/2007 omega 3-zie-zak-fish oil (Fish Oil) 100-160-1,000 mg capsule Take [...] Office Visit Department of Family Medicine, [facility], in [address] [phone] Jane Blanca M.D. [address] [place] [phone] documented as of this encounter Procedures Procedure Name Priority Date/Time Associated Diagnosis Comments CT NECK SOFT TISSUE WITH IV CONTRAST RAD - Routine (most inpatients and all outpatients) 01/15/2025 2:36 PM BROACH GRINDER Lymphadenopathy Cervical documented in this encounter Results * CT Neck Soft Tissue with IV Contrast (01/15/2025 2:36 PM BROACH GRINDER) Anatomical Region Laterality Modality Neck, Neuroradiology RST LOS , Neuroradiology ARZ LOS, Neuroradiology FLA LOS N/A Computed Tomography 01/15/2025 2:28 PM BROACH GRINDER Impressions 01/15/2025 2:58 PM BROACH GRINDER No abnormal neck mass or adenopathy. Narrative 01/15/2025 2:58 PM BROACH GRINDER EXAM: CT NECK SOFT TISSUE WITH IV [...] IMPRESSION: No abnormal neck mass or adenopathy. Jaz Pal P.A.-C. IMG CT PROCEDURES Final R esult documented in this encounter Visit Diagnoses Diagnosis Lymphadenopathy Cervical documented in this encounter Administered Medications Inactive Administered Medications - up to 3 most recent administrations Medication Order MAR Action Action Date Dose Rate Site iohexoL 300 mg iodine/mL solution 120 mL (Omnipaque) 120 mL, intravenous, Once in imaging, contrast, Starting on 01/15/25 at 1410, For 1 dose Given 01/15/2025 2:25 PM BROACH GRINDER 120 mL sodium chloride 0.9 % flush 60 mL 60 mL, intravenous, Once, On 01/15/25 at 1430, For 1 dose Given 01/15/2025 2:25 PM BROACH GRINDER 60 mL sodium chloride 0.9 % injection 10 mL 10 mL, intravenous, Once, On 01/15/25 at 1430, For 1 dose Given 01/15/2025 2:25 PM BROACH GRINDER 10 mL documented in this encounter Care Teams Learning Program Manager Relationship Specialty Start Date End Date Jane Blanca M.D. [address] [place] [address] [place] [phone] PCP - General Family Medicine 07/16/22 [facility] Dentistry 09/29/23 documented as of this encounter
--- OUTSIDE RECORDS SUMMARY | 2025-01-16 08:45 | XMS_ITS | Encounter Summary ---
Author Organization [facility] Address [address] [place] [address] Care Team Providers Care Tool Grinder Operator Name Role Phone Jane Blanca M.D. Primary Care Provider [phone] Reason for Referral * Outpatient (Routine) - Authorized Specialty Diagnoses / Procedures Referred By Mukesh ugarte Referred To Contact Ophthalmology Je Lozano Jr., M.D. [address] [place] [phone] Phone: tel: fax: [facility] Region Referral ID Status Reason Start Date Expiration Date V isits Requested Visits Authorized [id number] Authorized 01/16/2025 07/18/2026 1 1 ICANIZATION TEACHER Reason for Visit * Reason Comments Dry Eye * Outpatient (Routine) - Closed Specialty Diagnoses / Procedures Referred By Mukesh ugarte Referred To Contact Ophthalmology Tommy Antoine M.D. [address] [place] [phone] Phone: tel: fax: Je Lozano Jr., M.D. [address] [phone] Phone: tel: fax: Referral ID Status Reason Start Date Expiration Date Visits Re quested Visits Authorized [id number] Closed 07/12/2024 01/11/2026 1 1 Encounter Details Date Type Department Care Team (Latest Contact Info) Description 01/16/2025 8:45 AM AMERICANIZATION TEACHER Office Visit Department of Ophthalmology in [place], [place] [address] [phone] Je Lozano Jr., M.D. [address] [phone] Dry Eye Syndrome Bilateral (Primary Dx); Intraocular Lens Implant Status Post; Scleral Buckle Status Post Social History Tobacco Use Types Packs/Day Years Used Date Smoking Tobacco: Never Smokeless Tobacco: Never Alcohol Use Standard Drinks/Week Comments Yes 2 (1 standard drink = 0.6 oz pur e alcohol) [facility] Utilities Answer Date Recorded In the past [address] [facility] electric, gas, oil, or water [employer] threatened to shut off services in your [...] your living situation today? I have a [place] place to live 09/28/2024 Education Answer Date Recorded What is the highest level of school you have completed or the highest degree you have received? Some college, no degree 11/22/2021 Comments No Sex and Gender Information Value Date Recorded Sex Assigned at Female 12/05/2020 9:17 AM CDT Legal Sex Female 3:16 AM AMERICANIZATION TEACHER Gender Identity Female 12/08/2019 3:03 PM CDT Sexual Orientation Straight 12/08/2019 3: 03 PM CDT documented as of this encounter Progress Notes * Je Lozano Jr., M.D. - 01/16/2025 8:45 AM CST Magnolia Blank was seen today for Dry Eye #1 Dry Eye Syndrome Bilateral #2 Intraocular Lens Implant Status Post #3 Scleral Buckle Status Post #1 Doing well Continue xiidra, tears, face mask at night #2 New glasses if desired #3 Stable Rto 4-6 months ICANIZATION TEACHER documented in this encounter Plan of Treatment Upcoming Encounters Date Type Department Care Team (Late st Contact Info) Description 10/01/2025 9:00 AM CDT Office Visit Department of Family Medicine, [facility], in [address] [phone] Jane Blanca M.D. [address] [place] [address] Scheduled Referrals Name Type Priority Associated Diagnoses Order Schedule Ophthalmology office visit (clinic): Self; General Outpatient Referral Routine Expected: 07/16/2025, Expires: 04/18/2026 documented as of this encounter Visit Diagnoses Diagnosis Dry Eye Syndrome Bilateral- Primary Intraocular Lens Implant Status Post Scleral Buckle Status Post documented in this encounter Care Teams Tool Grinder Operator Relationship Specialty Start Date End Date Jane Blanca M.D. [address] [place] [phone] PCP - General Family Medicine 07/16/22 [facility] Dent[facility] 09/29/23 documented as of this encounter
--- OUTSIDE RECORDS SUMMARY | 2025-01-25 11:55 | XMS_ITS | Encounter Summary ---
Author Organization [facility] Address [address] [place] [address] Care Team Providers Care Curtain Cutter Name Role Phone Jane Blanca M.D. Primary Care Provider Reason for Referral * Gastrointestinal (Routine) - Closed Specialty Diagnoses / Procedures Referred By Mukesh ugarte Referred To Contact Diagnoses Polyp Of Stomach And Duodenum Procedures EGD (EsophagoGastroDuodenoscopy) Jane Blanca M.D. [address] [place] [address] Phone: tel: fax: [facility] Referral ID Status Reason Start Date Expiration Date Visits Re quested Visits Authorized [id number] Closed 01/02/2025 04/04/2026 1 1 [facility] Reason for Visit * Gastrointestinal (Routine) - Closed Specialty Diagnoses / Procedures Referred By Mukesh ugarte Referred To Contact Diagnoses Polyp Of Stomach And Duodenum Procedures EGD (EsophagoGastroDuodenoscopy) Jane Blanca M.D. [address] [place] [address] Phone: tel: fax: [facility] Referral ID Status Reason Start Date Expiration Date Visits Re quested Visits Authorized [id number] Closed 01/02/2025 04/04/2026 1 1 Encounter Details Date Type Department Care Team (Latest Contact Info) Description 01/25/2025 11:55 AM MOLD PARTER - 01/25/2025 2:54 PM MOLD PARTER Hospital Encounter Division of Gastroenterology in [place], [place] [address] [place] [address] Jane Blanca M.D. [address] [place] [address] Alicja Awad, RIGGING UP MAN, CHANGE MANAGEMENT LEAD, DNAP [address] [place] [address] Polyp Of Stomach And Duodenum Discharge Disposition: Home or Self Care Social History Tobacco Use Types Packs/Day Years Used Date Smoking Tobacco: Never Smokeless Tobacco: Never Alcohol Use Standard Drinks/Week Comments Yes 2 (1 standard drink = 0.6 oz pur e alcohol) [facility] Utilities Answer Date Recorded In the past 12 months has e electric, gas, oil, or water [employer] threatened to shut off services in your [...] your living situation today? I have a [facility] place to live 09/28/2024 Education Answer Date Recorded What is the highest level of school you have completed or the highest degree you have received? Some college, no degree 11/22/2021 Comments No Sex and Gender Information Value Date Recorded Sex Assigned at Female 12/05/2020 9:17 AM CDT Legal Sex Female 3:16 AM MOLD PARTER Gender Identity Female 12/08/2019 3:03 PM CDT Sexual Orientation Straight 12/08/2019 3: 03 PM CDT documented as of this encounter Last Filed Vital Signs Vital Sign Reading Time Taken Comments Blood Pressure 124/80 01/25/2025 2:22 PM MOLD PARTER Pulse 62 01/25/2025 2:22 PM MOLD PARTER Temperature 36.7 C (98.1 F) 01/25/2025 2:14 PM MOLD PARTER Respiratory Rate 17 01/25/2025 2:22 PM MOLD PARTER Oxygen Saturation 98% 01/25/2025 2:22 PM MOLD PARTER Inhaled Oxygen Concentration - - Weight 76.6 kg (168 lb 14.4 oz) 025 12:16 PM MOLD PARTER Height 165.1 cm (5' 5) 01/25/2025 12:1 6 PM MOLD PARTER Body Mass Index 28.11 01/25/2025 12:16 PM MOLD PARTER documented in this encounter Medications at Time of Discharge [...] needed for anaphylaxis. 2 each 3 07/21/2024 estradioL (Estrace) 0.1 mg/g (0.01%) vaginal creamIndication s:Prolapse Vaginal,Cystoce le Midline Apply 1 gram to vaginal opening at bedtime twice a week. 42.5 g 01/25/2025 hydroquinone 4 % cream Apply to dark [...] times a day. 180 each 3 11/03/2024 mineral oil/petrolatum, white (GENTEAL PM OPHT) Administer 1 drop into affected eye(s) as needed (Dry Eye). multivitamin (MULTIPLE VITAMIN ESSENTIAL ORAL) Take by mouth daily. 04/28/2007 omega 6-gkg-wub-fish oil (Fish Oil) 100-160-1,000 mg capsule Take by mouth daily. 05/10/2007 polyvinyl alcohol/povidon e/PF (REFRESH CLASSIC, PF, OPHT) Administer 1 drop into affected eye(s) as needed (Dry Eye). rosuvastatin (Crestor) 5 mg tablet TAKE ONE TABLET BY MOUTH ONE TIME DAILY 90 tablet 3 08/08/2024 documented as of this encounter Plan of Treatment Upcoming Encounters Date Type Department Care Team (Late st Contact Info) Description 10/01/2025 9:00 AM CDT Office Visit Department of Family Medicine, [facility], in [place], [place] [address] [place] [phone] Jane Blanca M.D. [address] [place] [phone] documented as of this encounter Procedures Procedure Name Priority Date/Time Associated Diagnosis Comments UPPER GI ENDOSCOPY Routine 01/25/2025 1: 14 PM MOLD PARTER Polyp Of Stomach And Duodenum EGD (ESOPHAGOGASTRODUOD ENOSCOPY) Routine 01/25/2025 1:14 PM MOLD PARTER Polyp Of Stomach And Duodenum documented in this encounter Results * Upper GI Endoscopy (01/25/2025 1:14 PM MOLD PARTER) Anatomical Region Laterality Modality Digital Radiogra phy 01/25/2025 1:14 PM MOLD PARTER Impressions 01/25/2025 1:54 PM MOLD PARTER Post-op Diagnoses: - A tattoo was seen in the duodenum. The tattoo site appeared normal. There was no evidence of residual polyp tissue. - Normal examined duodenum. - Normal stomach. - Normal esophagus. - No specimens collected. Narrative 01/25/2025 1:54 PM MOLD PARTER Héctor 6 GI GI Patient Name: Magnolia Blank Date of : 1950 Age: 74 Procedure Date: 01/25/2025 Procedure: Upper GI endoscopy Providers: Willy Maria MD Referring Provider: Jane Blanca Pre-op Diagnoses: Follow-up of benign duodenal tumor, Prior large polyp in D3 - resected Recommendation: - The patient will be observed post-procedure, until all discharge criteria are met. - Await pathology results. - Return to referring physician. Findings: A tattoo was seen in the fourth portion of the duodenum. The tattoo site appeared normal. There was no evidence of residual polyp tissue. The examined duodenum was normal. The entire examined stomach was normal. The examined esophagus was normal. Procedural Details: The patient was seen, evaluated, history reviewed, airway and heart-lung exams were performed by licensed provider and were satisfactory for planned level of sedation care. The risks, benefits and alternatives for the procedure and sedation were discussed and informed consent was obtained. A procedural pause was conducted in the presence of assisting personnel to verify the correct patient identity and procedure to be performed. Throughout the procedure, the patient's blood pressure, pulse, and oxygen saturations were monitored continuously. The Gastroscope was introduced under direct vision through the mouth, and advanced to the fourth part of duodenum. The upper GI endoscopy was accomplished without difficulty. The patient tolerated the procedure well. Estimated Blood Loss: Estimated blood loss: none. Complications: No immediate complications. Sedation: Anesthesia was administered by an anesthesia professional. The following parameters were monitored: oxygen saturation, heart rate, blood pressure, respiratory rate, EKG, adequacy of pulmonary ventilation, and response to care. Attending Participation: I personally performed the entire procedure. Willy Maria MD 01/25/2025 1:54:30 PM This report has been signed electronically. Number of Addenda: 0 us Jane Blanca M.D. GI PROCEDURE ORDERABLES Juanita rivero Result documented in this encounter Visit Diagnoses Diagnosis Polyp Of Stomach And Duodenum documented in this encounter Administered Medications Inactive Administered Medications - up to 3 most recent administrations Medication Order MAR Action Action Date Dose Rate Site acetaminophen injection 1,000 mg 1,000 mg, intravenous, at 400 mL/hr, Administer over 15 Minutes, Once as needed, other, If patient has not received in previous 6 hours, Starting on Corina 01/25/25 at 1356, For 1 dose, PACU (only), Oral unless RASS less than -1 or nausea/vomiting. Do not use if given in last 6 hours, Restriction Criteria (Pharmacy will review and approve if criteria met): Unable to take or tolerate medications administered via the enteral route or orally (not just NPO) acetaminophen tablet 1,000 mg (TylenoL) 1,000 mg, oral, Once as needed, other, If patient has not received in the previous 6 hours, Starting on Corina 01/25/25 at 1356, For 1 dose, PACU (only), Oral unless RASS less than -1 or nausea/vomiting. Do not use if given in last 6 hours documented in this encounter Active and Recently Administered Medications Times are shown in MOLD PARTER. Continuous Medication Order 01/23/2025 01/24/2025 01/25/2025 Lactated Ringer's 20 mL/hr, intravenous, Continuous, Starting on Corina 01/25/25 at 1415, PACU (only) 1415 (Due) PRN Medication Order 01/23/2025 01/24/2025 01/25/2025 acetaminophen injection 1,000 mg(Linked Group 1) 1,000 mg, intravenous, at 400 mL/hr, Administer over 15 Minutes, Once as needed, other, If patient has not received in previous 6 hours, Starting on Corina 01/25/25 at 1356, For 1 dose, PACU (only), Oral unless RASS less than -1 or nausea/vomiting. Do not use if given in last 6 hours, Restriction Criteria (Pharmacy will review and approve if criteria met): Unable to take or tolerate medications administered via the enteral route or orally (not just NPO) acetaminophen tablet 1,000 mg (TylenoL)(Linked Group 1) 1,000 mg, oral, Once as needed, other, If patient has not received in the previous 6 hours, Starting on Corina 01/25/25 at 1356, For 1 dose, PACU (only), Oral unless RASS less than -1 or nausea/vomiting. Do not use if given in last 6 hours fentaNYL injection 25 mcg (Sublimaze) 25 mcg, intravenous, Every 2 min PRN, moderate pain or score 4-6 of 10, severe pain or score 7-10 of 10, Starting on Corina 01/25/25 at 1356, PACU (only), Up to maximum total dose of 200 mcg Linked Groups Order Group 1: acetaminophen tablet 1,000 mg (TylenoL)Jump to med 1,000 mg, oral, Once as needed, other, If patient has not received in the previous 6 hours, Starting on Corina 01/25/25 at 1356, For 1 dose, PACU (only), Oral unless RASS less than -1 or nausea/vomiting. Do not use if given in last 6 hours Or acetaminophen injection 1,000 mgJump to med 1,000 mg, intravenous, at 400 mL/hr, Administer over 15 Minutes, Once as needed, other, If patient has not received in previous 6 hours, Starting on Corina 01/25/25 at 1356, For 1 dose, PACU (only), Oral unless RASS less than -1 or nausea/vomiting. Do not use if given in last 6 hours, Restriction Criteria (Pharmacy will review and approve if criteria met): Unable to take or tolerate medications administered via the enteral route or orally (not just NPO) documented in this encounter Care Teams Curtain Cutter Relationship Specialty Start Date End Date Jane Blanca M.D. [address] [place], [place] [address] [address] PCP - General Family Medicine 07/16/22 Willy [facility] Dentistry 09/29/23 documented as of this encounter
--- OUTSIDE RECORDS SUMMARY | 2025-01-25 13:15 | XMS_ITS | Encounter Summary ---
Author Organization [facility] Address [address] [place] [address] Care Team Providers Care Straddle Truck Operator Name Role Phone Jane Blanca M.D. Primary Care Provider Encounter Details Date Type Department Care Team (Latest Contact Info) Description 01/25/2025 1:15 PM OPTICAL COATING TECHNICIAN Ancillary Procedure Department of Gastroenterology Social History Tobacco Use Types Packs/Day Years Used Date Smoking Tobacco: Never Smokeless Tobacco: Never Alcohol Use Standard Drinks/Week Comments Yes 2 (1 standard drink = 0.6 oz pur e alcohol) [facility] Utilities Answer Date Recorded In the past 12 months has [facility] [employer], [employer], oil, or water [employer] threatened to shut off services in [...] your living situation today? I have a [facility] place to live 09/28/2024 Education Answer Date Recorded What is the highest level of school you have completed or the highest degree you have received? Some college, no degree 11/22/2021 Comments No Sex and Gender Information Value Date Recorded Sex Assigned at Female 12/05/2020 9:17 AM CDT Legal Sex Female 3:16 AM OPTICAL COATING TECHNICIAN Gender Identity Female 12/08/2019 3:03 PM CDT Sexual Orientation Straight 12/08/2019 3: 03 PM CDT documented as of this encounter Plan of Treatment Upcoming Encounters Date Type Department Care Team (Late st Contact Info) Description 10/01/2025 9:00 AM CDT Office Visit Department of Family Medicine, [facility], in [place], [place] [address] [place] [address] Jane Blanca M.D. [address] [place] [address] documented as of this encounter Procedures Procedure Name Priority Date/Time Associated Diagnosis Comments GASTROENTEROLOGY IMAGE EXAM Routine 01/25/2025 1:15 PM OPTICAL COATING TECHNICIAN documented in this encounter Results * Duodenum, Entire examined duodenum Upper GI endoscopy-Gastroenterology Image Exam (01/25/2025 1:15 PM OPTICAL COATING TECHNICIAN) 01/25/2025 1:14 PM OPTICAL COATING TECHNICIAN Narrative IIMS - 01/25/2025 2:04 PM OPTICAL COATING TECHNICIAN This order has been created and auto-finalized to support the import of images acquired without order. The clinical documentation to support these images can be found on the encounter that produced images. us Provider Not In System IMG NON RAD IMAGING PROCE DURES Final Result IIMS NA documented in this encounter Visit Diagnoses Not on filedocumented in this encounter Care Teams Straddle Truck Operator Relationship Specialty Start Date End Date Jane Blanca M.D. [address] [place] [phone] PCP - General Family Medicine 07/16/22 [facility] Dentistry 09/29/23 documented as of this encounter
--- OUTSIDE RECORDS SUMMARY | 2025-01-25 13:36 | XMS_ITS | Encounter Summary ---
Author Organization [facility] Address [address] [place] [address] Care Team Providers Care Steam Bone Press Tender Name Role Phone Jane Blanca M.D. Primary Care Provider [phone] Encounter Details Date Type Department Care Team (Latest Contact Info) Description 01/25/2025 1:36 PM APPLIANCES SAMPLE MAKER Anesthesia Event Division of Gastroenterology in [place], [place] [address] [place] [address] Alicja Awad APRN, CRNA, DNAP [address] [place] [address] Anesthesia Record Procedure Summary Procedure Name Responsible Anesthesiologist Anesthesia Start Time Anesthesia Stop Time EGD (ESOPHAGOGASTRODUOD ENOSCOPY) Alicja Awad APRN, HAYDER, DNAP 01/25/25 1336 01/25/25 1355 Events Date Time Event Comment 01/25/2025 1336 An Start Machine/Equipme nt Checked Infection Precautions Followed Procedure/Site Verified NPO Status Verified Supine Standard ASA Monitors Applied 1340 Turnover to Proceduralist 1344 Proc Start 1348 Turnover to ANE Staff 1348 Proc Fin 1351 an stop data 1355 An End I completed my handoff to the receiving staff during which we 1. Identified the patient 2. Identified the responsible provider 3. Reviewed the pertinent medical history 4. Discussed the surgical course 5. Reviewed intra-op anesthesia management and issues during anesthesia 6. Set expectations for post-procedure period 7. Allowed opportunity for questions and acknowledgement of understanding. Meds Name Total lidocaine 2% (mg) injection 80 mg ondansetron PF 4 mg/2 mL injection 4 mg propofol 10 mg/mL injection 100 mg propofol 10 mg/mL infusion 86.18 mg dexAMETHasone (Decadron) injection 4 mg/ mL 8 mg Lactated Ringers Free Drip 100 mL * Agents No agents on file. * Blood No blood administrations on file. Lines, Drains, and Airways Type Details Placement Removal Peripheral IV Placement Date: 01/13 06/06; Placement Time: 1229; Catheter Size: 20 G; Orientation: Anterior, Lower, Right; Location: Arm; Site Prep: Alcohol; Technique: Anatomical landmarks; Inserted by: Sallie PAINTER; Insertion Attempts: 1; Removal Date: 01/25/25; Removal Time: 1454; Removal Reason: Patient discharged 01/25/25 1229 by Sallie Cristobal R.N. 01/25/25 1454 by Sallie Cristobal RJena. documented in this encounter Social History Tobacco Use Types Packs/Day Years Used Date Smoking Tobacco: Never Smokeless Tobacco: Never Alcohol Use Standard Drinks/Week Comments Yes 2 (1 standard drink = 0.6 oz pur e alcohol) [facility] Utilities Answer Date Recorded In the past 12 months has [facility] [employer], [employer], [employer], or water [employer] threatened to shut off services in [...] your living situation today? I have a [facility] place to live 09/28/2024 Education Answer Date Recorded What is the highest level of school you have completed or the highest degree you have received? Some college, no degree 11/22/2021 Comments No Sex and Gender Information Value Date Recorded Sex Assigned at Female 12/05/2020 9:17 AM CDT Legal Sex Female 3:16 AM APPLIANCES SAMPLE MAKER Gender Identity Female 12/08/2019 3:03 PM CDT Sexual Orientation Straight 12/08/2019 3: 03 PM CDT documented as of this encounter OR Notes * Anesthesia Postprocedure Evaluation - Alicja Awad APRN, CRNA, DNAP - 01/25/2025 1:55 PM CST Patient: Magnolia Blank Procedure Summary Date: 01/25/25 Room / Location: Division of Gastroenterology in [place], [place] Anesthesia Start: 1336 Anesthesia Stop: 1355 Procedure: EGD (ESOPHAGOGASTRODUODENOSCOPY) Diagnosis: Polyp Of Stomach And Duodenum Polyp Of Stomach And Duodenum Scheduled Providers: Alicja Awad APRN, CRNA, DNAP Responsible Provider: Alicja Awad APRN, CRNA, DNAP Anesthesia Type: MAC ASA Status: Not recorded Anesthesia Type: MAC Last vitals Vitals Value Taken Time BP 106/63 01/25/25 13:53 Temp Pulse 69 01/25/25 13:55 Resp 16 01/25/25 13:55 SpO2 95 % 01/25/25 13:55 Vitals shown include unfiled device data. Please reference Vitals flowsheet for most recent vital signs. Anesthesia Post Evaluation Patient Disposition: dismissal Cardiovascular status: hemodynamics (HR & BP) acceptable Respiratory status: patent airway with spontaneous effort Temperature: normothermic Oxygen requirements: room air Level of consciousness: awake Pain score: pain adequately controlled and/or at baseline Post Op nausea/vomiting: none Hydration status: euvolemic Notable Events No notable events documented. IANCES SAMPLE MAKER * Anesthesia Preprocedure Evaluation - Alicja Awad APRN, CRNA, DNAP - 01/25/2025 1:30 PM CST Preprocedure Anesthesia & H&P Assessment Procedure Summary Date/Time: 01/25/25 1315 Scheduled providers: Alicja Awad APRN, CRNA, DNAP Procedure: EGD (ESOPHAGOGASTRODUODENOSCOPY) Diagnosis: Polyp Of Stomach And Duodenum [K31.7] Polyp Of Stomach And Duodenum [K31.7] Location: Division of Gastroenterology in [place], [place] Pertinent components of the patient's history including current problem list, medical history, surgical history, family history, social history, medications and allergies were reviewed. Present illness and pre-op diagnosis were confirmed. The planned surgery / procedure was verified with the patient / legal guardian. The patient's general health condition remains unchanged RELEVANT COMORBID CONDITIONS ANESTHESIA (+) Post Operative Nausea/Vomiting CV (+) Bundle Branch Block Right RESP (within normal limits) ENDO (+) Goiter (+) Thyroiditis Subacute GI (+) Gastroesophageal Reflux Disease NOS Endocrine/Metabolic (+) Hyperlipidemia OBJECTIVE PHYSICAL EXAMINATION Airway (HEENT) Mallampati: I TM Distance: >3 FB Neck ROM: Full Mouth Opening: >3 cm Upper Lip Bite Test Class: I Cardiovascular Rhythm: Regular Rate: Normal Cardiovascular Assessment: cardiovascular normal Functional Capacity: >4 METS Pulmonary Pulmonary Assessment: Clear and non labored General / Constitutional Constitutional Assessment: Normal General State of Health:: healthy appearing and calm Neurological Neurologic Assessment: alert and alert and oriented x 3 Dental Dental Assessment: dentition intact ASSESSMENT / PLAN ANESTHESIA PLAN ASA: 2 Anesthesia Plan: MAC Patient seen and allergies reviewed, anesthesia plan and risks discussed directly with patient /legal guardian or through an ross carrier driver. Risks/Benefits/Alternatives of Blood transfusion discussed with patient / legal guardian, includingan opportunity to ask questions and/or decline some or all transfusion therapies. The patient / legal guardian consented to the use of all blood products, as deemed medically necessary Approval to Proceed: approved for anesthesia IANCES SAMPLE MAKER documented in this encounter Plan of Treatment Upcoming Encounters Date Type Department Care Team (Late st Contact Info) Description 10/01/2025 9:00 AM CDT Office Visit Department of Family Medicine, [facility], in [place], [place] [address] [place] [address] Jane Blanca M.D. [address] [place] [address] documented as of this encounter Visit Diagnoses Not on filedocumented in this encounter Administered Medications Inactive Administered Medications - up to 3 most recent administrations Medication Order MAR Action Action Date Dose Rate Site dexAMETHasone injection (Decadron) intravenous, As needed, Starting on Corina 01/25/25 at 1344, Anesthesia Intra-op Given 01/25/2025 1:44 PM APPLIANCES SAMPLE MAKER 8 mg Lactated Ringer's intravenous, Continuous Infusion: Per Instructions PRN, Starting on Corina 01/25/25 at 1340, Anesthesia Intra-op New Bag 01/25/2025 1:40 PM APPLIANCES SAMPLE MAKER lidocaine (PF) (cardiac) injection intravenous, As needed, Starting on Corina 01/25/25 at 1340, Anesthesia Intra-op Given 01/25/2025 1:40 PM APPLIANCES SAMPLE MAKER 80 mg ondansetron (PF) injection (Zofran) intravenous, As needed, Starting on Corina 01/25/25 at 1340, Anesthesia Intra-op Given 01/25/2025 1:40 PM APPLIANCES SAMPLE MAKER 4 mg propofol 10 mg/mL infusion (Diprivan) intravenous, Continuous Infusion: Per Instructions PRN, Starting on Corina 01/25/25 at 1340, Anesthesia Intra-op Rate/Dose Change 01/25/2025 1:43 PM APPLIANCES SAMPLE MAKER 150 mcg/kg/min 68.94 mL/hr New Bag 01/25/2025 1:40 PM APPLIANCES SAMPLE MAKER 125 mcg/kg/min 57.45 mL/ hr propofoL injection (Diprivan) intravenous, As needed, Starting on Corina 01/25/25 at 1340, Anesthesia Intra-op Given 01/25/2025 1:43 PM APPLIANCES SAMPLE MAKER 30 mg Given 01/25/2025 1:42 PM APPLIANCES SAMPLE MAKER 30 mg Given 01/25/2025 1:40 PM APPLIANCES SAMPLE MAKER 40 mg documented in this encounter Care Teams Steam Bone Press Tender Relationship Specialty Start Date End Date Jane Blanca M.D. [address] [place] [address] [place] [phone] PCP - General Family Medicine 07/16/22 [facility] Dentistry 09/29/23 documented as of this encounter
--- OUTSIDE RECORDS SUMMARY | 2025-02-02 10:40 | XMS_ITS | Encounter Summary ---
Author Organization [facility] Address [address] [place] [address] Care Team Providers Care School Community Relations Coordinator Name Role Phone Jane Blanca M.D. Primary Care Provider [phone] Reason for Referral * Cardiovascular-Diagnostic (Routine) - Authorized Specialty Diagnoses / Procedures Referred By Mukesh ugarte Referred To Contact Diagnoses Palpitations Procedures ECG Heart rhythm monitor (Holter) Jane Blanca M.D. [address] [place] [address] Phone: tel: fax: [facility] Region Referral ID Status Reason Start Date Expiration Date V isits Requested Visits Authorized [id number] Authorized 02/02/2025 05/05/2026 1 1 ORIZATION SPECIALIST * Outpatient (Routine) - Closed Specialty Diagnoses / Procedures Referred By Mukesh ugarte Referred To Contact Diagnoses Palpitations Procedures ECG 12 Lead IN EKG 12 LEAD W I&R aJne Blanca M.D. [address] [place] [address] Phone: tel: fax: [facility] Region Referral ID Status Reason Start Date Expiration Date Visits Re quested Visits Authorized [id number] Closed 02/02/2025 05/05/2026 1 1 ORIZATION SPECIALIST Reason for Visit * Reason Comments Other Irregular heart beat s since 01/31/25. Dull headaches, lightheaded. Encounter Details Date Type Department Care Team (Late st Contact Info) Description 02/02/2025 10:40 AM AUTHORIZATION SPECIALIST Office Visit Department of Family Medicine, [facility], in [place], [place] [address] [place] [address] Jane Blanca M.D. [address] [place] [phone] Palpitations (Primary Dx); Beat Premature Ventricular; Anxiety Social History Tobacco Use Types Packs/Day Years Used Date Smoking Tobacco: Never Smokeless Tobacco: Never Tobacco Cessation:Counseling Given: Not Answered Alcohol Use Standard Drinks/Week Comments Yes 2 (1 standard drink = 0.6 oz pur e alcohol) [facility] Utilities Answer Date Recorded In the past 12 months has [facility] [employer] gas, oil, or water [employer] threatened to shut off services in your [...] living situation today? I have a [facility] place to live 09/28/2024 Education Answer Date Recorded What is the highest level of school you have completed or the highest degree you have received? Some college, no degree 11/22/2021 Comments No Sex and Gender Information Value Date Recorded Sex Assigned at Female 12/05/2020 9:17 AM CDT Legal Sex Female 3:16 AM AUTHORIZATION SPECIALIST Gender Identity Female 12/08/2019 3:03 PM CDT Sexual Orientation Straight 12/08/2019 3: 03 PM CDT documented as of this encounter Last Filed Vital Signs Vital Sign Reading Time Taken Comments Blood Pressure 123/77 02/02/2025 10:31 AM AUTHORIZATION SPECIALIST Pulse 90 02/02/2025 10:31 AM AUTHORIZATION SPECIALIST Temperature 36.1 C (97 F) 02/02/2025 10:31 AM AUTHORIZATION SPECIALIST Respiratory Rate 16 02/02/2025 10:31 AM AUTHORIZATION SPECIALIST Oxygen Saturation - - Inhaled Oxygen Concentration - - Weight 75.5 kg (166 lb 8.9 oz) 02/02/2025 10:31 AM AUTHORIZATION SPECIALIST Height - - Body Mass Index 27.72 01/25/2025 12:16 PM AUTHORIZATION SPECIALIST documented in this encounter Progress Notes * Jane Blanca M.D. - 02/02/2025 10:40 AM CST DATE OF VISIT: 02/02/2025 SUBJECTIVE CHIEF COMPLAINT / REASON FOR VISIT Magnolia Blank is a 74 y.o. female with past medical history significant for anxiety, osteoporosis, skin cancer, hyperlipidemia, atrial hernia, GERD, duodenal polyps, cecal polyps, colonic polyps, diverticulosis, dry eye syndrome, status post TVH, BSO, vaginal colpopexy, anterior vaginal repair, and posterior vaginal repai who presents for evaluation of Other (Irregular heart beats since 01/31/25. Dull headaches, lightheaded.). The patient verbally consented to an audio recording of their visit to assist with the completion of documentation. History of Present Illness Mrs. Magnolia Blank is a 74 year old female who presents with worsening irregular heartbeat and associated symptoms. Cardiac arrhythmia symptoms - Irregular heartbeat worsening since September 2023 - Severe episode on Wednesday, January 29, 2025, with heart rate up to 128 bpm at 4 PM (home pulse monitoring) - Heart rate ranged from 62 to 128 bpm during episodes - Daily episodes of irregular heartbeat since Wednesday, with Wednesday's episode lasting from noon untilbedtime - Wednesday episode lasted approximately 1.5 hours in the afternoon - Wednesday and episodes lasted about 2 hours each - Nocturnal rhythm disturbance subjectively felt, but pulse not monitored overnight - No associated chest pain or shortness of breath during episodes - Blood pressure remained stable throughout episodes Associated neurological symptoms - Lightheadedness during episodes of irregular heartbeat - Dull headache accompanying arrhythmia episodes Cardiac diagnostic history - Normal echocardiogram in August 2023 - Holter monitor in August 2023 showed benign premature ventricular contractions (PVCs) and prematureatrial contractions (PACs) with a burden of less than 1% Other recent medical evaluations - Recent esophagogastroduodenoscopy (EGD) reported as normal - Anesthesiologist's report from EGD mentioned 'acute thyroiditis,' not confirmed OBJECTIVE VITAL SIGNS BP 123/77 (BP Location: Left arm, Patient Position: Sitting, Cuff Size: Regular) Pulse 90 Temp 36.1 ??C (Temporal) Resp 16 Wt 75.5 kg BMI 27.72 kg/m?? Physical Exam Physical Exam ASSESSMENT/ PLAN Palpitations Beat Premature Ventricular Palpitations with lightheadedness and headache Intermittent palpitations with associated lightheadedness and dull headache since Wednesday, lasting several hours. Previous Holter monitor showed benign PVCs and PACs with less than 1% burden. Differential includes benign PVCs and anxiety. No shortness of breath or chest pain reported. Blood pressureand pulse rates are within normal limits. Previous echocardiogram was normal. Current symptoms may be related to anxiety or benign PVCs. - Ordered Holter monitor and EKG - Rechecked thyroid function - Advised to avoid caffeine and alcohol - Encouraged relaxation techniques and deep breathing exercises Orders: ECG 12 Lead; Future ECG Heart rhythm monitor (Holter); Future S-TSH (Thyroid-Stimulating Hormone - Sensitive); Future Basic Metabolic Panel; Future Anxiety May contribute to palpitations. No prior treatment for anxiety. Discussed starting Prozac 10 mg daily as a first-line treatment for anxiety. Explained potential side effects including headache, abdominal pain, nausea, vomiting, and possible increased anxiety or depression. Emphasized that Prozac should be tapered off gradually if discontinued. - Prescribed Prozac 10 mg daily - Educated on potential side effects and tapering off if needed ORIZATION SPECIALIST documented in this encounter Plan of Treatment Upcoming Encounters Date Type Department Care Team (Late st Contact Info) Description 10/01/2025 9:00 AM CDT Office Visit Department of Family Medicine, [facility], in [address] [phone] Jane Blanca M.D. [address] [place] [address] Pending Results Name Type Priority Associated Diagnoses Date /Time ECG Heart rhythm monitor (Holter) Cardiac Services Routine Palpitations 02/02/2025 2:27 PM AUTHORIZATION SPECIALIST documented as of this encounter Results * Basic Metabolic Panel (02/02/2025 11:17 AM AUTHORIZATION SPECIALIST) [facility] Potassium, P 4.5 3.6 - 5.2 mmol/L 02/02/2025 1:15 PM AUTHORIZATION SPECIALIST OWAT Sodium, P 143 135 - 145 mmol/L 02/02/2025 1:15 PM AUTHORIZATION SPECIALIST OWAT Chloride, P 107 98 - 107 mmol/L 02/02/2025 1:15 PM AUTHORIZATION SPECIALIST OWAT Bicarbonate, P 25 22 - 29 mmol/L 02/02/2025 1:15 PM AUTHORIZATION SPECIALIST OWAT Anion Gap, P 11 7 - 15 02/02/2025 1:15 PM AUTHORIZATION SPECIALIST OWAT BUN (Blood Urea Nitrogen), P 13 6 - 21 mg/dL 02/02/2025 1:15 PM AUTHORIZATION SPECIALIST OWAT Creatinine 0.67 0.59 - 1.04 mg/dL 02/02/2025 1:15 PM AUTHORIZATION SPECIALIST OWAT Estimated GFR (eGFR) >90 >=60 mL/min/BSA 02/02/2025 1:15 PM AUTHORIZATION SPECIALIST OWAT Comment: Estimated GFR calculated using the 2020 CKD_EPI creatinine equation. Calcium, Total, P 9.6 8.8 - 10.2 mg/dL 02/02/2025 1:15 PM AUTHORIZATION SPECIALIST OWAT Glucose, P 103 70 - 140 mg/dL 02/02/2025 1:15 PM AUTHORIZATION SPECIALIST OWAT Blood (Blood, Venous) 02/02/2025 11:17 AM AUTHORIZATION SPECIALIST 02/02/2025 12:39 PM AUTHORIZATION SPECIALIST Jane Blanca M.D. LAB BLOOD ADD-ON Final Resul t Performing Organization Address City/[facility]/ZIP Co de Phone Number [facility] [address] [place] [address], [facility] in [place] [address], [place] [address] * S-TSH (Thyroid-Stimulating Hormone - Sensitive) (02/02/2025 11:17 AM AUTHORIZATION SPECIALIST) TSH, Sensitive 3.5 0.3 - 4.2 mIU/L 02/02/2025 1:22 PM AUTHORIZATION SPECIALIST OWAT Blood (Blood, Venous) 02/02/2025 11:17 AM AUTHORIZATION SPECIALIST 02/02/2025 12:39 PM AUTHORIZATION SPECIALIST us Jane Blanca M.D. LAB BLOOD ADD-ON Final Resul t Performing Organization Address City/[facility]/ZIP Co de Phone Number [facility] [address] [place] [address], [facility] in [place] [address] [place] [address] * ECG 12 Lead (02/02/2025 11:15 AM AUTHORIZATION SPECIALIST) Ventricular Rate ECG/Min 80 BPM MUSE IN Interval 136 ms MUSE QRSD Interval 122 ms MUSE QT Interval 406 ms MUSE QTC Interval 468 ms MUSE P [place] 56 degrees MUSE R [place] -28 degrees MUSE T Wave [place] -1 degrees MUSE 02/02/2025 11:1 5 AM AUTHORIZATION SPECIALIST 02/02/2025 11:39 AM AUTHORIZATION SPECIALIST Impressions MUSE - 02/02/2025 11:39 AM AUTHORIZATION SPECIALIST Sinus rhythm with sinus arrhythmia Right bundle branch block with secondary ST-T abnormalities When compared with ECG of 20-Jul-2023 16:37, No significant change was found Reviewed by HOMA Harris Narrative Procedure Note Stanley Aleman M.D. - 02/02/2025 IMPRESSION: Sinus rhythm with sinus arrhythmia Right bundle branch block with secondary ST-T abnormalities When compared with ECG of 20-Jul-2023 16:37, No significant change was found Reviewed by HOMA Harris us Jane Blanca M.D. ECG ORDERABLES Final Result MUSE NA documented in this encounter Visit Diagnoses Diagnosis Palpitations- Primary Beat Premature Ventricular Anxiety Palpitations documented in this encounter Care Teams School Community Relations Coordinator Relationship Specialty Start Date End Date Jane Blanca M.D. [address] [place] [phone] PCP - General Family Medicine 07/16/22 [facility] Dentistry 09/29/23 documented as of this encounter
--- OUTSIDE RECORDS SUMMARY | 2025-02-02 11:03 | XMS_ITS | Encounter Summary ---
Author Organization [facility] Address [address] [place] [address] Care Team Providers Care Tank Farm Attendant Name Role Phone Jane Blanca M.D. Primary Care Provider [phone] Encounter Details Date Type Department Care Team (Latest Contact Info) Description 02/02/2025 11:03 AM RIGGING MAN - 02/02/2025 2:22 PM [facility] Hospital Encounter Department of Laboratory Medicine in [address] [phone] Jane Blanca M.D. [address] [place] [phone] Palpitations Discharge Disposition: Home or Self Care Social History Tobacco Use Types Packs/Day Years Used Date Smoking Tobacco: Never Smokeless Tobacco: Never Alcohol Use Standard Drinks/Week Comments Yes 2 (1 standard drink = 0.6 oz pur e alcohol) [facility] Utilities Answer Date Recorded In the past 12 months has e electric, gas, oil, or water [employer] threatened to shut off services in your [...] your living situation today? I have a [facility] place to live 09/28/2024 Education Answer Date Recorded What is the highest level of school you have completed or the highest degree you have received? Some college, no degree 11/22/2021 Comments No Sex and Gender Information Value Date Recorded Sex Assigned at Female 12/05/2020 9:17 AM CDT Legal Sex Female 3:16 AM RIGGING MAN Gender Identity Female 12/08/2019 3:03 PM CDT [...] bedtime twice a week. 42.5 g 01/25/2025 FLUoxetine (PROzac) 10 mg capsule Take 1 capsule (10 mg total) by mouth daily. 30 capsule 1 02/02/2025 hydroquinone 4 % cream Apply to dark [...] ORAL) Take by mouth daily. 04/28/2007 omega 7-ihw-yyn-fish oil (Fish Oil) 100-160-1,000 mg capsule Take [...] CDT Office Visit Department of Family Medicine, [facility], in [place] [address] [address] [phone] Jane Blanca M.D. [address] [place], [place] [address] [phone] documented as of this encounter Procedures Procedure Name Priority Date/Time Associated Diagnosis Comments THYROID-STIMULATING HORMONE-SENSITIVE (S-TSH) Routine 02/02/2025 11:17 AM RIGGING MAN Palpitations BASIC METABOLIC PANEL, S/P Routine 02/02/2025 11:17 AM RIGGING MAN Palpitations documented in this encounter Results * Basic Metabolic Panel (02/02/2025 11:17 AM RIGGING MAN) Potassium, P 4.5 3.6 - 5.2 mmol/L 02/02/2025 1:15 PM RIGGING MAN OWAT Sodium, P 143 135 - 145 mmol/L 02/02/2025 1:15 PM RIGGING MAN OWAT Chloride, P 107 98 - 107 mmol/L 02/02/2025 1:15 PM RIGGING MAN OWAT Bicarbonate, P 25 22 - 29 mmol/L 02/02/2025 1:15 PM RIGGING MAN OWAT Anion Gap, P 11 7 - 15 02/02/2025 1:15 PM RIGGING MAN OWAT BUN (Blood Urea Nitrogen), P 13 6 - 21 mg/dL 02/02/2025 1:15 PM RIGGING MAN OWAT Creatinine 0.67 0.59 - 1.04 mg/dL 02/02/2025 1:15 PM RIGGING MAN OWAT Estimated GFR (eGFR) >90 >=60 mL/min/BSA 02/02/2025 1:15 PM RIGGING MAN OWAT Comment: Estimated GFR calculated using the 2020 CKD_EPI creatinine equation. Calcium, Total, P 9.6 8.8 - 10.2 mg/dL 02/02/2025 1:15 PM RIGGING MAN OWAT Glucose, P 103 70 - 140 mg/dL 02/02/2025 1:15 PM RIGGING MAN OWAT Blood (Blood, Venous) 02/02/2025 11:17 AM RIGGING MAN 02/02/2025 12:39 PM RIGGING MAN Jane Blanca M.D. LAB BLOOD ADD-ON Final Resul t [facility] [address] [place] [address], [facility] OWAT [facility] [place] [address] [place] [address] * S-TSH (Thyroid-Stimulating Hormone - Sensitive) (02/02/2025 11:17 AM RIGGING MAN) TSH, Sensitive 3.5 0.3 - 4.2 mIU/L 02/02/2025 1:22 PM RIGGING MAN OWAT Blood (Blood, Venous) 02/02/2025 11:17 AM RIGGING MAN 02/02/2025 12:39 PM RIGGING MAN us Jane Blanca M.D. LAB BLOOD ADD-ON Final Resul t Performing Organization Address City/[facility]/ZIP Co de Phone Number [facility] [address] [place] [address], [place] OWAT [facility] in [place] [address] [place] [address] documented in this encounter Visit Diagnoses Diagnosis Palpitations documented in this encounter Care Teams Tank Farm Attendant Relationship Specialty Start Date End Date Jane Blanca M.D. [address] [place] [phone] PCP - General Family Medicine 07/16/22 [facility] Dentistry 09/29/23 documented as of this encounter
--- OUTSIDE RECORDS SUMMARY | 2025-02-02 11:03 | XMS_ITS | Encounter Summary ---
Author Organization [facility] Address [address] [place] [address] Care Team Providers Care Title One Reading Teacher Name Role Phone Jane Blanca M.D. Primary Care Provider [phone] Reason for Referral * Outpatient (Routine) - Closed Specialty Diagnoses / Procedures Referred By Mukesh ugarte Referred To Contact Diagnoses Palpitations Procedures ECG 12 Lead GA EKG 12 LEAD W I&R Jane Blanca M.D. [address] [place] [address] Phone: tel: fax: [facility] Referral ID Status Reason Start Date Expiration Date Visits Re quested Visits Authorized [id number] Closed 02/02/2025 05/05/2026 1 1 RUPTCY JUDGE Reason for Visit * Outpatient (Routine) - Closed Specialty Diagnoses / Procedures Referred By Mukesh ugarte Referred To Contact Diagnoses Palpitations Procedures ECG 12 Lead GA EKG 12 LEAD W I&R Jane Blanca M.D. [address] [place] [address] Phone: tel: fax: [facility] Region Referral ID Status Reason Start Date Expiration Date Visits Re quested Visits Authorized [id number] Closed 02/02/2025 05/05/2026 1 1 Encounter Details Date Type Department Care Team (Latest Contact Info) Description 02/02/2025 11:03 AM BANKRUPTCY JUDGE - 02/02/2025 2:22 PM BANKRUPTCY JUDGE Hospital Encounter Department of Laboratory Medicine in [place], [place] [address] [place] [address] Jane Blanac M.D. [address] [place] [phone] Palpitations Discharge Disposition: Home or Self Care Social History Tobacco Use Types Packs/Day Years Used Date Smoking Tobacco: Never Smokeless Tobacco: Never Alcohol Use Standard Drinks/Week Comments Yes 2 (1 standard drink = 0.6 oz pur e alcohol) [facility] Utilities Answer Date Recorded In the past 12 months has [employer], gas, oil, or water [employer] threatened to shut off services in your [...] AM CDT Legal Sex Female 3:16 AM BANKRUPTCY JUDGE Gender Identity Female 12/08/2019 3:03 PM CDT [...] ORAL) Take by mouth daily. 04/28/2007 omega 9-wsi-yjg-fish oil (Fish Oil) 100-160-1,000 mg capsule Take [...] CDT Office Visit Department of Family Medicine, [facility], in [place], [place] [address] [place] [phone] Jane Blanca M.D. [address] [place] [phone] documented as of this encounter Procedures Procedure Name Priority Date/Time Associated Diagnosis Comments ECG Routine 02/02/2025 11:15 AM BANKRUPTCY JUDGE Palpitations documented in this encounter Results * ECG 12 Lead (02/02/2025 11:15 AM BANKRUPTCY JUDGE) Ventricular Rate ECG/Min 80 BPM MUSE GA Interval 136 ms MUSE QRSD Interval 122 ms MUSE QT Interval 406 ms MUSE QTC Interval 468 ms MUSE P [place] 56 degrees MUSE R [place] -28 degrees MUSE T Wave [place] -1 degrees MUSE 02/02/2025 11:1 5 AM BANKRUPTCY JUDGE 02/02/2025 11:39 AM BANKRUPTCY JUDGE Impressions MUSE - 02/02/2025 11:39 AM BANKRUPTCY JUDGE Sinus rhythm with sinus arrhythmia Right bundle [...] Jane Blanca M.D. ECG ORDERABLES Final Result Performing Organization Address [facility] Co de Phone Number MUSE NA documented in this encounter Visit Diagnoses Diagnosis Palpitations documented in this encounter Care Teams Title One Reading Teacher Relationship Specialty Start Date End Date Jane Blanca M.D. [address] [place] [phone] PCP - General Family Medicine 07/16/22 [facility] Dentistry 09/29/23 documented as of this encounter
--- OUTSIDE RECORDS SUMMARY | 2025-02-02 14:23 | XMS_ITS | Encounter Summary ---
Author Organization [facility] Address [address] [place] [address] Care Team Providers Care Agricultural Production Engineer Name Role Phone Jane Blanca M.D. Primary Care Provider [phone] Reason for Referral * Cardiovascular-Diagnostic (Routine) - Authorized Specialty Diagnoses / Procedures Referred By Mukesh ugarte Referred To Contact Diagnoses Palpitations Procedures ECG Heart rhythm monitor (Holter) Jane Blanca M.D. [address] [place] [address] Phone: tel: fax: [facility] Region Referral ID Status Reason Start Date Expiration Date V isits Requested Visits Authorized [id number] Authorized 02/02/2025 05/05/2026 1 1 NCE INTERN Reason for Visit * Cardiovascular-Diagnostic (Routine) - Authorized Specialty Diagnoses / Procedures Referred By Mukesh ugarte Referred To Contact Diagnoses Palpitations Procedures ECG Heart rhythm monitor (Holter) Jane Blanca M.D. [address] [place] [address] Phone: tel: fax: [facility] Region Referral ID Status Reason Start Date Expiration Date V isits Requested Visits Authorized [id number] Authorized 02/02/2025 05/05/2026 1 1 Encounter Details Date Type Department Care Team (Latest Contact Info) Description 02/02/2025 2:23 PM SCIENCE INTERN - 02/02/2025 11:59 PM SCIENCE INTERN Hospital Encounter Department of Cardiovascular Diseases in [place], [place] [address] [place] [phone] Jane Blanca M.D. [address] [place] [phone] Palpitations Discharge Disposition: Home or Self Care Social History Tobacco Use Types Packs/Day Years Used Date Smoking Tobacco: Never Smokeless Tobacco: Never Alcohol Use Standard Drinks/Week Comments Yes 2 (1 standard drink = 0.6 oz pur e alcohol) [facility] Utilities Answer Date Recorded In the past 12 months has e [employer], gas, oil, or water [employer] threatened to shut off services in your [...] AM CDT Legal Sex Female 3:16 AM SCIENCE INTERN Gender Identity Female 12/08/2019 3:03 PM CDT [...] ORAL) Take by mouth daily. 04/28/2007 omega 4-mdo-jfh-fish oil (Fish Oil) 100-160-1,000 mg capsule Take [...] CDT Office Visit Department of Family Medicine, [facility], in [place], [place] [address] [place] [address] Jane Blanac M.D. [address] [place] [phone] Pending Results Name Type Priority Associated Diagnoses Date /Time ECG Heart rhythm monitor (Holter) Cardiac Services Routine Palpitations 02/02/2025 2:27 PM SCIENCE INTERN documented as of this encounter Procedures Procedure Name Priority Date/Time Associated Diagnosis Comments HOLTER MONITOR - IN CLINIC FIREFIGHTING EQUIPMENT SPECIALIST Routine 02/02/2025 2:27 PM SCIENCE INTERN Palpitations documented in this encounter Visit Diagnoses Diagnosis Palpitations documented in this encounter Care Teams Agricultural Production Engineer Relationship Specialty Start Date End Date Jane Blanca M.D. [address] [place] [phone] PCP - General Family Medicine 5/4/23 [facility] Dentistry 09/29/23 documented as of this encounter
--- OUTSIDE RECORDS SUMMARY | 2025-02-06 20:27 | XMS_ITS | Encounter Summary ---
Author Organization [facility] Address [address] [place] [address] Care Team Providers Care Dryer Feeder Name Role Phone Jane Blanca M.D. Primary Care Provider Reason for Visit * Reason Comments Med Refill Encounter Details Date Type Department Care Team (Late st Contact Info) Description 01/22/2025 Refill Department of Obstetrics and Gynecology in [place], [place] [address] [phone] Sindi Lainez M.D. [address] [phone] Med Refill Social History Tobacco Use Types Packs/Day Years Used Date Smoking Tobacco: Never Smokeless Tobacco: Never Alcohol Use Standard Drinks/Week Comments Yes 2 (1 standard drink = 0.6 oz pur e alcohol) [facility] Utilities Answer Date Recorded In the [...] your living situation today? I have a [facility] place to live 09/28/2024 Education Answer Date Recorded What is the highest level of school you have completed or the highest degree you have received? Some college, no degree 11/22/2021 Comments No Sex and Gender Information Value Date Recorded Sex Assigned at Female 12/05/2020 9:17 AM CDT Legal Sex Female 3:16 AM PATIENT SERVICES REPRESENTATIVE Gender Identity Female 12/08/2019 3:03 PM CDT Sexual Orientation Straight 12/08/2019 3: 03 PM CDT documented as of this encounter Plan of Treatment Upcoming Encounters Date Type Department Care Team (Late st Contact Info) Description 10/01/2025 9:00 AM CDT Office Visit Department of Family Medicine, [facility], in [place], [place] [address] [place] [address] Jane Blanca M.D. [address] [place] [address] documented as of this encounter Visit Diagnoses Diagnosis Prolapse Vaginal Cystocele Midline documented in this encounter Care Teams Dryer Feeder Relationship Specialty Start Date End Date Jane Blanca M.D. [address] [place], [place] [address] [phone] PCP - General Family Medicine 07/16/22 [facility] Dentistry 09/29/23 documented as of this encounter
--- OUTSIDE RECORDS SUMMARY | 2025-02-06 20:27 | XMS_ITS | Encounter Summary ---
Author Organization [facility] Address [address] [place] [address] Care Team Providers Care Pool Installer Name Role Phone Jane Blanca M.D. Primary Care Provider [phone] Reason for Referral * Physical Therapy (Routine) - Authorized Specialty Diagnoses / Procedures Referred By Mukesh ugarte Referred To Contact Physical Therapy Diagnoses Pain Neck Jaz Pal PCaroleeACarolee-Naveed [address], [place] [address] Phone: tel: fax: [facility] [address] [place] [phone] Phone: tel: Referral ID Status Reason Start Date Expiration Date Visits Requested Visits Authorized [id number] Authorized Patient Preference 01/16/2025 07/18/20261998 ER OPERATOR Encounter Details Date Type Department Care Team (Latest Contact Info) Description 01/16/2025 Orders Only Department of Otorhinolaryngology in [place], [place] [address] [place] [phone] Kae Jazmiky Luciano P.A.-C. [address] [facility] [place] [address] Pain Neck (Primary Dx) Social History Tobacco Use Types Packs/Day Years Used Date Smoking Tobacco: Never Smokeless Tobacco: Never Alcohol Use Standard Drinks/Week Comments Yes 2 (1 standard drink = 0.6 oz pur e alcohol) [facility] Utilities Answer Date Recorded In the past 12 months has e electric, gas, oil, or water [employer] threatened to shut off services in your [...] your living situation today? I have a [facility] place to live 09/28/2024 Education Answer Date Recorded What is the highest level of school you have completed or the highest degree you have received? Some college, no degree 11/22/2021 Comments No Sex and Gender Information Value Date Recorded Sex Assigned at Female 12/05/2020 9:17 AM CDT Legal Sex Female 3:16 AM MUCKER OPERATOR Gender Identity Female 12/08/2019 3:03 PM CDT Sexual Orientation Straight 12/08/2019 3: 03 PM CDT documented as of this encounter Plan of Treatment Upcoming Encounters Date Type Department Care Team (Late st Contact Info) Description 10/01/2025 9:00 AM CDT Office Visit Department of Family Medicine, [facility], in [place], [place] [address] [place] [address] Jane Blanca M.D. [address] [place] [address] documented as of this encounter Visit Diagnoses Diagnosis Pain Neck- Primary documented in this encounter Care Teams Pool Installer Relationship Specialty Start Date End Date Jane Blanca M.D. [address] [place] [address] PCP - General Family Medicine 07/16/22 [facility] 09/29/23 documented as of this encounter
--- OUTSIDE RECORDS SUMMARY | 2025-02-06 20:27 | XMS_ITS | Encounter Summary ---
Author Organization [facility] Address [address] [place] [address] Care Team Providers Care Pastrycook'S Assistant Name Role Phone Ernestina Blanca M.D. Primary Care Provider Reason for Referral * Outpatient (Routine) - Closed Specialty Diagnoses / Procedures Referred By Mukesh ugarte Referred To Contact Otorhinolaryngology Diagnoses Lymphadenitis Cervical Ernestina Blanca M.D. [address] [place] [address] Phone: tel: fax: [facility] Region Referral ID Status Reason Start Date Expiration Date Visits Re quested Visits Authorized [id number] Closed 01/02/2025 07/04/2026 1 1 Reason for Visit * Reason Onset Date Comments Results 12/29/2024 12/29/24 via yusra marsh. Encounter Details Date Type Department Care Team (Late st Contact Info) Description 12/29/2024 Results Follow-Up Department of Family Medicine, [facility], in [place], [place] [address] [place] [address] Suzanne Wallace L.P.N. [address] [place] [phone] CBC with Differential, Blood, Infectious Mononucleosis, Rapid Test, CRP (C-Reactive Protein), US Head Neck Soft Tissue Social History Tobacco Use Types Packs/Day Years Used Date Smoking Tobacco: Never Smokeless Tobacco: Never Alcohol Use Standard Drinks/Week Comments Yes 2 (1 standard drink = 0.6 oz pur e alcohol) [facility] Utilities Answer Date Recorded In the past 12 months has e electric, gas, oil, or water [employer] threatened to shut off services in your [...] your living situation today? I have a [facility] place to live 09/28/2024 Education Answer Date Recorded What is the highest level of school you have completed or the highest degree you have received? Some college, no degree 11/22/2021 Comments No Sex and Gender Information Value Date Recorded Sex Assigned at Female 12/05/2020 9:17 AM CDT Legal Sex Female 3:16 AM NEON GLASS BENDER Gender Identity Female 12/08/2019 3:03 PM CDT Sexual Orientation Straight 12/08/2019 3: 03 PM CDT documented as of this encounter Miscellaneous Notes * Addendum Note - Ernestina Blanca M.D. - 01/02/2025 10:35 AM CDTAddended by: ERNESTINA BLANCA on: 01/02/2025 10:35 AM Modules accepted: Orders documented in this encounter Plan of Treatment Upcoming Encounters Date Type Department Care Team (Late st Contact Info) Description 10/01/2025 9:00 AM CDT Office Visit Department of Family Medicine, [facility], in [place], [place] [address] [place] [address] Ernestina Blanca M.D. [address] [place] [address] Scheduled Referrals Name Type Priority Associated Diagnoses Order Schedule Otorhinolaryngology - Head and neck surgery consult (clinic) Outpatient Referral Routine Lymphadenitis Cervical Expected: 01/02/2025, Expires: 04/04/2026 documented as of this encounter Visit Diagnoses Diagnosis Lymphadenitis Cervical- Primary documented in this encounter Care Teams Pastrycook'S Assistant Relationship Specialty Start Date End Date Ernestina Blanca M.D. [address] [place] [address] PCP - General Family Medicine 07/16/22 [facility] 09/29/23 documented as of this encounter
--- OUTSIDE RECORDS SUMMARY | 2025-02-06 20:27 | XMS_ITS | Clinical Summary ---
Author Organization [facility] Address [address] [place] [address] Care Team Providers Care Customer Sales Distributor Name Role Phone Pcp, No Primary Care Provider Unavailabl e Allergies Active Allergy Reactions Criticality Noted Date Comments Azithromycin Hives 10/17/2019 Cyclosporine Itching Medium 01/16/2025 Dryness and stinging Erythromycin Rash 07/13/2006 Hymenoptera Allergenic Extract Other - Describe In Comment Field 07/21/2006 Penicillins Rash 07/13/2006 Medications ESTRACE 0.01% (0.1 MG/G) VAGINAL CREAM insert 1g by vaginal route once weekly 0 Active EPIPEN 0.3 MG/0.3 ML (1:1,000) IM INJECTOR Use as directed for bee sting allergy 1 1 7 Active MULTIPLE VITAMIN TAB take 1 tablet by oral route once daily with food 0 8 Active ASPIRIN 81 MG TAB, DELAYED RELEASE take 1 tablet (81 mg) by oral route once daily 0 8 Active FISH OIL 1,000 MG CAP daily 0 8 Active CALCIUM 600 + D 600 MG (1,500)-200 UNIT TAB daily 0 8 Active VITAMIN C 500 MG TAB one daily 0 8 Active polyethylene glycol-electroly te (GOLYTELY) 236-22.74-6.74 -5.86 gram suspensionIndica tions:Encounter for colonoscopy due to history of colonic polyp Drink 3 quarts the day prior to colonoscopy and 1 quart 6 hours prior to colonoscopy appointment 4000 mL 06/11/202 0 Active Additional Information Patient not taking.Reported on 01/27/2025 simvastatin (ZOCOR) 5 mg tablet Take 1 tablet by mouth at bedtime. 0 0 Active Xiidra 5 % ophthalmic solution Administer 1 drop into both eyes 2 times a day.* 5 Active rosuvastatin (CRESTOR) 5 mg tablet Take 5 mg by mouth once daily. 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 [address] [place] [address] Jaz Pal PA Rein, Erik, PT Encounter for person encountering health services 01/24/2025 Travel 01/19/[address] [facility] [address] [place] [address] Jaz Pal PA 01/15/2025 2:01 PM WREATH MAKER - 01/15/2025 11:59 PM WREATH MAKER Hospital Encounter [facility] [address] [place] [address] Jaz Pal PA Lymphadenopathy, cervical from Last 3 Months Immunizations Immunization Administration Dates Next Due COVID-19 vaccine (Pfizer-BioNTViveve 30mcg/0.3mL) P F, MDV 05/15/2020,04/24/2020 Td (Age >=7 Years) 03/23/2004 Family History Medical History Relation Name Comments Cancer Father lung Hyperlipidemia Father Hypertension Father Stroke Father Hyperlipidemia Mother Hypertension Mother Relation Name Status Comments Father Mother Social History Tobacco Use Types Packs/Day Years Used Date Smoking Tobacco: Never Smokeless Tobacco: Never Alcohol Use Standard Drinks/Week Comments Yes 5 (1 standard drink = 0.6 oz pur e alcohol) occasionally Social Connections Answer Date Recorded Frequency of Communication with Friends and Fami ly Not on file 03/15/2021 Financial Resource Strain Answer Date R ecorded Difficulty of Paying Living Expenses Not on file 03/15/2021 Difficulty of Paying Living Expenses Not on file 03/15/2021 Comments No Sex and Gender Information Value Date Recorded Sex Assigned at Not on file Legal Sex Female 6:18 AM WREATH MAKER Gender Identity Not on file Sexual Orientation Not on file Obstetrics History Last Filed Vital Signs Vital Sign Reading Time Taken Comments Blood Pressure 123/69 01/27/2025 2:49 PM WREATH MAKER Pulse 87 01/27/2025 2:49 PM WREATH MAKER Temperature 36.1 C (97 F) 01/27/2025 2:49 PM WREATH MAKER Respiratory Rate 16 01/27/2025 2:49 PM WREATH MAKER Oxygen Saturation 96% 01/27/2025 2:49 PM WREATH MAKER Inhaled Oxygen Concentration - - Weight 74.8 kg (165 lb) 01/27/2025 2:49 PM WREATH MAKER Height 166.4 cm (5' 5.5) 08/24/2007 10:44 AM CD T Body Mass Index - - Plan of Treatment Upcoming Encounters Date Type Department Care Team (Late st Contact Info) Description 02/15/2025 10:15 AM WREATH MAKER Appointment [facility] [address] [place] [address] Jasper Cody, PT [address] [place] [address] 02/22/2025 10:15 AM WREATH MAKER Appointment [address] [facility] [place] [address] Jasper Cody, PT 35 [facility] [address] [facility] [place] [address] 02/28/2025 11:00 AM WREATH MAKER Appointment [address] [facility] [place] [address] Vero Carvajal V, SITE TECHNICIAN 35 [facility] [place] [address] 03/06/2025 10:15 AM WREATH MAKER Appointment [address] [place] [address] Vero Carvajal V, SITE TECHNICIAN 35 [facility] [place] [address] 03/13/2025 2:15 PM WREATH MAKER Appointment [address] [place] [address] Jasper Cody, PT 35 [facility] [place] [address] 03/20/2025 9:30 AM WREATH MAKER Appointment [address] [address] Jasper Cody, PT 35 [facility] [place] [address] 03/27/2025 10:15 AM WREATH MAKER Appointment [address] [place] [address] Jasper Cody, PT 35 [facility] [place] [address] Health Maintenance Due Date Last Done Comments Depression screening for age 12+ 1961 BMI (ht and wt on same day) for age 18+ 10/13/1967 Hepatitis C screening for age 18-79 10/13/1967 Pneumococcal series for age 50+ (1 of 1 - PCV) 10/13/1999 Zoster (shingles) series for age 50+ (1 of 2) 10/13/1999 Lipids for age 45-75 07/07/2012 07/08/2007, 07/09/19 07 Tetanus booster 03/23/2014 03/23/2004 DEXA/DXA scan for age 65+ 2014 Medicare Wellness for age 65+ 2014 RSV vaccine for adults or (1 - 1-dose 75+ series) 2024 Influenza Vaccine (#1) 2024 Colonoscopy through age 75 12/10/202412/10, 09/18/2019, 08/27/2014, Additional history exists Hepatitis B series for 19+ Aged Out N o longer eligible based on patient's age to complete this topic Procedures Procedure Name Priority Date/Time Associated Diagnosis Comments XR SINUS 1 VIEW MCCLENDON STAT 01/27/2025 3:20 PM WREATH MAKER Facial swelling CT NECK SOFT TISSUE W Routine 01/15/2025 2:34 PM WREATH MAKER Lymphadenopathy, cervical SCAN-COLONOSCOPY 12/11/2019 12:0 0 AM CDT LIPID PANEL Routine 07/08/2007 8:20 AM CDT Routine General Medical Exam from Last 3 Months or Most Recently Relevant to Health Maintenance Results * XR SINUS 1 VIEW MCCLENDON (01/27/2025 3:20 PM WREATH MAKER) Anatomical Region Laterality Modality SINUS Computed Radiogr aphy 01/27/2025 3:53 PM WREATH MAKER Narrative 01/27/2025 3:53 PM WREATH MAKER For Patients: As a result of the Cures Act, medical imaging exams and procedure reports are released immediately into your electronic medical record. You may view this report before your referring provider. If you have questions, please contact your health care provider. Indication: Facial swelling. Technique: Sinus water`s 1 views. Comparison: None. Findings/Impression: Unremarkable exam. Paranasal sinuses are clear. No osseous abnormality. Dictated by Kain Lilly MD @ 01/27/2025 3:53:39 PM (Electronically Signed) Procedure Note Kain Lilly MD - 01/27/2025 For Patients: As a result of the Cures Act, medical imagingexams and procedure reports are released immediately into your electronicmedical record. You may view this report before your referring provider.If you have questions, please contact your health care provider. Indication: Facial swelling. Technique: Sinus water`s 1 views. Comparison: None. Findings/Impression: Unremarkable exam. Paranasal sinuses are clear. No osseous abnormality. Dictated by Kain Lilly MD @ 01/27/2025 3:53:39 PM (Electronically Signed) Kathar[facility] Final Result * CT NECK SOFT TISSUE W (01/15/2025 2:34 PM WREATH MAKER) Anatomical Region Laterality Modality NECK Computed Tomogra phy Jaz MIGUEL CT Final Resul t * SCAN-COLONOSCOPY (12/11/2019 12:00 AM CDT) Scanner OTHER Final Result * (ABNORMAL) LIPID PANEL (07/08/2007 8:20 AM CDT) CHOLESTEROL,TOTAL 228(H) 110 - 199 mg/dL [facility] TRIGLYCERIDES 83 <150 mg/dL [facility] HDL CHOLESTEROL 63 >40 mg/dL [facility] CHOL/HDL RATIO 3.62 <4.51 [facility] LDL CHOLESTEROL 148(H) <131 mg/dL [facility] PATIENT STATUS Fasting [facility] Blood specimen (specimen) BLOOD SPECIMEN / Unknown 07/08/2007 8:20 AM CDT 07/08/2007 8:14 AM CDT us Magnolia Grant MD CHEMISTRY Final Result [facility] [address] [place] [address] from Last 3 Months or Most Recently Relevant to Health Maintenance Insurance [employer] BLUE MR PB ONLY MEDICARE PART B HB ONLY [employer] BLUE HB ONLY Care Teams Customer Sales Distributor Relationship Specialty Start Date End Date Pcp, No . PCP - General 01/11/25
--- OUTSIDE RECORDS SUMMARY | 2025-02-06 20:27 | XMS_ITS | Encounter Summary ---
Author Organization [facility] [place] Address [address] [place] [address] Care Team Providers Care Returned Case Inspector Name Role Phone Jane Blanca M.D. Primary Care Provider Reason for Referral * Gastrointestinal (Routine) - Closed Specialty Diagnoses / Procedures Referred By Mukesh ugarte Referred To Contact Diagnoses Polyp Of Stomach And Duodenum Procedures EGD (EsophagoGastroDuodenoscopy) Jane Blanca M.D. [address] [place] [address] Phone: tel: fax: [facility] Referral ID Status Reason Start Date Expiration Date Visits Re quested Visits Authorized [id number] Closed 01/02/2025 04/04/2026 1 1 Encounter Details Date Type Department Care Team (Late st Contact Info) Description 12/29/2024 Clinical Communication Department of Family Medicine, [facility], in [place], [place] [address] [place] [address] Jane Blanca M.D. 300 [place] [address] Social History Tobacco Use Types Packs/Day Years Used Date Smoking Tobacco: Never Smokeless Tobacco: Never Alcohol Use Standard Drinks/Week Comments Yes 2 (1 standard drink = 0.6 oz pur e alcohol) [facility] Utilities Answer Date Recorded In the past [address] [facility] electric, gas, oil, or water company threatened [...] your living situation today? I have a [facility] place to live 09/28/2024 Education Answer Date Recorded What is the highest level of school you have completed or the highest degree you have received? Some college, no degree 11/22/2021 Comments No Sex and Gender Information Value Date Recorded Sex Assigned at Female 12/05/2020 9:17 AM CDT Legal Sex Female 3:16 AM ALARM OPERATOR Gender Identity Female 12/08/2019 3:03 PM CDT Sexual Orientation Straight 12/08/2019 3: 03 PM CDT documented as of this encounter Plan of Treatment Upcoming Encounters Date Type Department Care Team (Late st Contact Info) Description 10/01/2025 9:00 AM CDT Office Visit Department of Family Medicine, [facility], in [place], [place] [address] [place] [address] Jane Blanca M.D. [address] [place] [address] documented as of this encounter Visit Diagnoses Diagnosis Polyp Of Stomach And Duodenum- Primary documented in this encounter Care Teams Returned Case Inspector Relationship Specialty Start Date End Date Jane Blanca M.D. [address] [place] [address] PCP - General Family Medicine 07/16/22 [facility] Dent[facility] 09/29/23 documented as of this encounter
--- OUTSIDE RECORDS SUMMARY | 2025-02-06 20:27 | XMS_ITS | Encounter Summary ---
Author Organization [facility] Address [address] [place] [address] Care Team Providers Care Respiratory Director Name Role Phone Jane Blanca M.D. Primary Care Provider Encounter Details Date Type Department Care Team (Late st Contact Info) Description 01/02/2025 Referral Triage Division of Gastroenterology in [place], [place] [address] [place] [phone] Schuyler Mccracken N, PHYSICIAN ASSISTANT SURGERY, SENIOR ACCOUNTING ASSOCIATE, MNA [address] [place] [phone] Social History Tobacco Use Types Packs/Day Years Used Date Smoking Tobacco: Never Smokeless Tobacco: Never Alcohol Use Standard Drinks/Week Comments Yes 2 (1 standard drink = 0.6 oz pur e alcohol) [facility] Utilities Answer Date Recorded In the past 12 months has e electric, gas, oil, or water [employer] threatened to shut off services in your [...] your living situation today? I have a [facility] place to live 09/28/2024 Education Answer Date Recorded What is the highest level of school you have completed or the highest degree you have received? Some college, no degree 11/22/2021 Comments No Sex and Gender Information Value Date Recorded Sex Assigned at Female 12/05/2020 9:17 AM CDT Legal Sex Female 3:16 AM BORING MACHINE SET UP OPERATOR Gender Identity Female 12/08/2019 3:03 PM CDT Sexual Orientation Straight 12/08/2019 3: 03 PM CDT documented as of this encounter Plan of Treatment Upcoming Encounters Date Type Department Care Team (Late st Contact Info) Description 10/01/2025 9:00 AM CDT Office Visit Department of Family Medicine, [facility], in [place], [place] [address] [place] [address] Jane Blanca M.D. [address] [place] [address] documented as of this encounter Visit Diagnoses Not on filedocumented in this encounter Care Teams Respiratory Director Relationship Specialty Start Date End Date Jane Blanca M.D. NPDeedee: [id number] [address] [place] [phone] PCP - General Family Medicine 07/16/22 [facility] 09/29/23 documented as of this encounter
--- OUTSIDE RECORDS SUMMARY | 2025-02-06 20:27 | XMS_ITS | Encounter Summary ---
Author Organization [facility] Address [address] [place] [address] Care Team Providers Care Retail Store Assistant Name Role Phone Jane Blanca M.D. Primary Care Provider Reason for Visit * Reason Onset Date Comments Referral Triage 12/29/2024 Encounter Details Date Type Department Care Team (Latest Contact Info) Description 12/29/2024 Referral Triage Division of Gastroenterology in [place], [place] [address] [place] [phone] Kevin Rodriguez, ORACLE ERP ARCHITECT, PUBLICATIONS DESIGNER [address] [place] [phone] Referral Triage Social History Tobacco Use Types Packs/Day Years Used Date Smoking Tobacco: Never Smokeless Tobacco: Never Alcohol Use Standard Drinks/Week Comments Yes 2 (1 standard drink = 0.6 oz pur e alcohol) [facility] Utilities Answer Date Recorded [...] your living situation today? I have a [facility] place to live 09/28/2024 Education Answer Date Recorded What is the highest level of school you have completed or the highest degree you have received? Some college, no degree 11/22/2021 Comments No Sex and Gender Information Value Date Recorded Sex Assigned at Female 12/05/2020 9:17 AM CDT Legal Sex Female 3:16 AM SERVICE AND REPAIR SUPERVISOR Gender Identity Female 12/08/2019 3:03 PM CDT Sexual Orientation Straight 12/08/2019 3: 03 PM CDT documented as of this encounter Plan of Treatment Upcoming Encounters Date Type Department Care Team (Late st Contact Info) Description 10/01/2025 9:00 AM CDT Office Visit Department of Family Medicine, [facility], in [place], [place] [address] [place] [address] Jane Blanca M.D. [address] [place] [address] documented as of this encounter Visit Diagnoses Not on filedocumented in this encounter Care Teams Retail Store Assistant Relationship Specialty Start Date End Date Jane Blanca M.D. [address] [place] [phone] PCP - General Family Medicine 07/16/22 [facility] Dentistry 09/29/23 documented as of this encounter
--- OUTSIDE RECORDS SUMMARY | 2025-02-06 20:27 | XMS_ITS | Encounter Summary ---
Author Organization [facility] Address [address] [place] [address] Care Team Providers Care Epic Willow Analyst Name Role Phone Jane Blanca M.D. Primary Care Provider [phone] Encounter Details Date Type Department Care Team (Latest Contact Info) Description 01/15/2025 Results Follow-Up Department of Otorhinolaryngology in [place], [place] [address] [place] [phone] Jaz Pal P.A.-C. [address] [place] [phone] [address] Neck Soft Tissue with IV Contrast Social History Tobacco Use Types Packs/Day Years Used Date Smoking Tobacco: Never Smokeless Tobacco: Never Alcohol Use Standard Drinks/Week Comments Yes 2 (1 standard drink = 0.6 oz pur e alcohol) [facility] Utilities Answer Date Recorded [...] your living situation today? I have a [facility] place to live 09/28/2024 Education Answer Date Recorded What is the highest level of school you have completed or the highest degree you have received? Some college, no degree 11/22/2021 Comments No Sex and Gender Information Value Date Recorded Sex Assigned at Female 12/05/2020 9:17 AM CDT Legal Sex Female 3:16 AM ENVIRONMENTAL ECONOMIST Gender Identity Female 12/08/2019 3:03 PM CDT Sexual Orientation Straight 12/08/2019 3: 03 PM CDT documented as of this encounter Miscellaneous Notes * Telephone Encounter - Jaz Pal P.A.-C. - 01/16/2025 1:02 PM ENVIRONMENTAL ECONOMIST Please fax order to [facility] in [place] and let patient know RONMENTAL ECONOMIST documented in this encounter Plan of Treatment Upcoming Encounters Date Type Department Care Team (Late st Contact Info) Description 10/01/2025 9:00 AM CDT Office Visit Department of Family Medicine, [facility], in [place], [place] [address] [facility] [phone] Jane Blanca M.D. [address] [place] [phone] documented as of this encounter Visit Diagnoses Not on filedocumented in this encounter Care Teams Epic Willow Analyst Relationship Specialty Start Date End Date Jane Blanca M.D. [address] [place] [phone] PCP - General Family Medicine 07/16/22 [facility] 09/29/23 documented as of this encounter
--- OUTSIDE RECORDS SUMMARY | 2025-02-06 20:28 | XMS_ITS | Clinical Summary ---
Author Organization [facility] Address [address] [place] [address] Care Team Providers Care Charge Entry Clerk Name Role Phone Jane Blanca M.D. Primary Care Provider [phone] Source Comments Patient records contain information from all sites at [facility]. For routine questions regarding patient records, call [phone] during business hours, M-F 8:00 AM - 5:00 PM Central Time. Record requests for emergency care only can be directed to [phone] at any time.[facility] Allergies Active Allergy Reactions Criticality Noted Date Comments Azithromycin Hives (Reselect Reaction) 10/17/2019 Bee Venom Protein (Honey Bee) Other (see comments) 12/30/2006 Hymenoptera Allergenic Extract Other (see comments) 07/21/2006 Penicillins Rash 07/13/2006 Cyclosporine Itching Medium 01/16/2025 Dryness and stinging Tree Nut Other (see comments) 10/17/2019 Sores on mouth Medications * This document contains information received from the source organization and may not represent a complete record from that organization. ascorbic acid, vitamin C, (VITAMIN C) 1,000 mg tablet Take by mouth daily. 08/24/19 08 Active multivitamin (MULTIPLE VITAMIN ESSENTIAL ORAL) Take by mouth daily. 04/28/19 08 Active calcium carbonate/bala min D3 (CALCIUM 600 + D,3, ORAL) Take by mouth daily. 05/10/19 08 Active omega 0-jkp-qet-fish oil (Fish Oil) 100-160-1,000 mg capsule Take by mouth daily. 05/10/19 08 Active hydroquinone 4 % cream Apply to dark spots on face one time daily at bedtime for 3 months. Then take one month break.* 11/11/19 24 Active acetaminophen (TylenoL) 500 mg tablet Take 2 tablets (1,000 mg total) by mouth every 6 (six) hours as needed for pain. 05/31/19 25 Active Additional Information Patient not taking.Reported on 02/02/2025 ibuprofen 200 mg tablet Take 1-2 tablets (200-400 mg total) by mouth every 6 (six) hours as needed for pain. 05/31/19 25 Active carboxymethylc ellulose sodium (REFRESH CELLUVISC OPHT) Administer 1 drop into affected eye(s) as needed. Active polyvinyl alcohol/povido ne/PF (REFRESH CLASSIC, PF, OPHT) Administer 1 drop into affected eye(s) as needed (Dry Eye). Active EPINEPHrine 0.3 mg/0.3 mL injection syringe Inject 0.3 mL (0.3 mg total) intramuscularly as needed for anaphylaxis. 2 each 3 07/22/19 25 Active rosuvastatin (Crestor) 5 mg tablet TAKE ONE TABLET BY MOUTH ONE TIME DAILY 90 tablet 3 08/09/19 25 Active diclofenac sodium (Voltaren) 1 % gel Apply 2 g topically as needed. Active lifitegrast (Xiidra) 5 % ophthalmic solution Administer 1 drop into both eyes 2 (two) times a day. 180 each 3 11/04/19 25 Active mineral oil/petrolatum ,white (GENTEAL PM OPHT) Administer 1 drop into affected eye(s) as needed (Dry Eye). Active estradioL (Estrace) 0.1 mg/g (0.01%) vaginal creamIndicatio ns:Prolapse Vaginal,Cystoc romy Midline Apply 1 gram to vaginal opening at bedtime twice a week. 42.5 g 01/26/20 25 Active FLUoxetine (PROzac) 10 mg capsule Take 1 capsule (10 mg total) by mouth daily. 30 capsule 1 02/03/20 25 Active estradioL (Estrace) 0.1 mg/g (0.01%) vaginal creamIndicatio ns:Prolapse Vaginal,Cystoc romy Midline Apply 1 gram to vaginal opening at bedtime twice a week. 42.5 g 3 01/04/20 24 025 Discontin ued(Reord er) white petrolatum-min eral oiL 94-3 % ointment Apply 0.25 inches to both eyes 3 (three) times a day as needed (Dry Eye). 025 Discontin ued(Dupli harleen order) Active Problems Patient Care Coordination No te Formatting of this note migh t be different from the original. SILVA completed for daughters Jaz and Camelia and Zachery. These are valid for life unless revoked. 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 She was switched to an antiincontinence pessary, which did not help. Pessary discontinued. Will proceed with surgical intervention. 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 Therefore switch to a size 5 dish pessary with knob but unfortunately continue to experience continuously leakage so pessary was removed. Will continue with manual reduction of prolapse and position changes to assist with emptying her bladder for now. Ultimately, plans to proceed with surgical intervention for management of her prolapse and incontinence at the [facility] in [place] with Dr. Alvares. Post Operative Nausea/Vomiting 12/11/2019 Polyp Colon 12/11/2019 Goiter 08/24/2007 Hyperlipidemia 07/15/2007 Thyroiditis Subacute 02/01/2007 Other Retinal Detachments 07/13/2006 Postmenopausal Atrophic Vaginitis 07/13/2006 Overview (02/23/2024): Utilizing vaginal estrogen cream 2 nights per week. Gastroesophageal Reflux Disease NOS Resolved Problems Problem Noted Date Diagnosed Date Resolved Date Tachycardia 03/11/2007 05/16/2024 Colitis Ulcerative Encounters Date Type Department Care Team Description 02/02/2025 2:23 PM RETAIL ACCOUNT SPECIALIST - 02/02/2025 11:59 PM RETAIL ACCOUNT SPECIALIST Hospital Encounter Department of Cardiovascular Diseases in [place], [place] [address] [place] [address] Jane Blanca M.D. Palpitations Discharge Disposition: Home or Self Care 02/02/2025 11:03 AM RETAIL ACCOUNT SPECIALIST - 02/02/2025 2:22 PM RETAIL ACCOUNT SPECIALIST Hospital Encounter Department of Laboratory Medicine in [place], [place] [address] [place] [address] Jane Blanca M.D. Palpitations Discharge Disposition: Home or Self Care 02/02/2025 11:03 AM RETAIL ACCOUNT SPECIALIST - 02/02/2025 2:22 PM RETAIL ACCOUNT SPECIALIST Hospital Encounter Department of Laboratory Medicine in [place], [place] [address] [place] [address] Jane Blanca M.D. Palpitations Discharge Disposition: Home or Self Care 02/02/2025 10:40 AM RETAIL ACCOUNT SPECIALIST Office Visit Department of Family Medicine, [facility], in [place], [place] [address] [place] [address] Jane Blanca M.D. Palpitations (Primary Dx); Beat Premature Ventricular; Anxiety 02/02/2025 Results Follow-Up Department of Family Medicine, [facility], in [place], [place] [address] [place] [address] Suzanne Wallace L.P.N. S-TSH (Thyroid-Stimulating Hormone - Sensitive), Basic Metabolic Panel 01/25/2025 1:36 PM RETAIL ACCOUNT SPECIALIST Anesthesia Event Division of Gastroenterology in [place], [place] [address] [place] [address] EisAlicja matthews APRN, AVICULTURIST, DNAP 01/25/2025 1:15 PM RETAIL ACCOUNT SPECIALIST Ancillary Procedure Department of Gastroenterology 01/25/2025 11:55 AM RETAIL ACCOUNT SPECIALIST - 01/25/2025 2:54 PM RETAIL ACCOUNT SPECIALIST Hospital Encounter Division of Gastroenterology in [place], [place] [address] [place] [address] Jane Blanca M.D. Eisenbraun, Alyssa N, APRN, AVICULTURIST, DNAP Polyp Of Stomach And Duodenum Discharge Disposition: Home or Self Care 01/22/2025 Refill Department of Obstetrics and Gynecology in [address] [phone] Sindi Lainez M.D. Med Refill 01/16/2025 8:45 AM RETAIL ACCOUNT SPECIALIST Office Visit Department of Ophthalmology in [address] [phone] Je Lozano Jr., M.D. Dry Eye Syndrome Bilateral (Primary Dx); Intraocular Lens Implant Status Post; Scleral Buckle Status Post 01/16/2025 Orders Only Department of Otorhinolaryngology in [address] [address] Jaz Pal P.A.-C. Pain Neck (Primary Dx) 01/15/2025 1:59 PM RETAIL ACCOUNT SPECIALIST - 01/15/2025 11:59 PM RETAIL ACCOUNT SPECIALIST Hospital Encounter Department of Radiology in [address] [address] Jaz Pal P.A.-C. Lymphadenopathy Cervical Discharge Disposition: Home or Self Care 01/15/2025 Results Follow-Up Department of Otorhinolaryngology in [address] [address] Jaz Pal P.A.-C. CT Neck Soft Tissue with IV Contrast 01/08/2025 10:19 AM CDT - 01/08/2025 11:59 PM CDT Hospital Encounter Department of Laboratory Medicine in [address] [address] Jaz Pal P.A.-C. Lymphadenopathy Cervical Discharge Disposition: Home or Self Care 01/08/2025 10:00 AM CDT Comprehensive Visit Department of Otorhinolaryngology in [address] [address] Jaz Pal P.A.-C. Lymphadenopathy Cervical (Primary Dx); Pain Neck; Xerostomia 01/02/2025 Referral Triage Division of Gastroenterology in [place], [place] [address] [place] [address] Schuyler Mccracken APRN, HAYDER, NANCY 01/01/2025 2:21 PM CDT - 01/01/2025 11:59 PM CDT Hospital Encounter Department of Radiology in [address] [address] Jane Blanca M.D. Pain Neck Discharge Disposition: Home or Self Care 12/29/2024 Clinical Communication Department of Family Medicine, [facility], in [address] [address] Jane Blanca M.D. 12/29/2024 Results Follow-Up Department of Family Medicine, [facility], in [address] [address] Suzanne Wallace L.P.N. CBC with Differential, Blood, Infectious Mononucleosis, Rapid Test, CRP (C-Reactive Protein), US Head Neck Soft Tissue 12/29/2024 Referral Triage Division of Gastroenterology in [place], [place] [address] [place] [address] Kevin Rodriguez APRN, HAYDER Referral Triage 12/28/2024 3:50 PM CDT - 12/28/2024 11:59 PM CDT Hospital Encounter Department of Laboratory Medicine in [address] [phone] Jane Blanca M.D. Lymphadenopathy; Pain Neck Discharge Disposition: Home or Self Care 12/28/2024 3:00 PM CDT Office Visit Department of Family Medicine, [facility], in [place], [place] [address] [facility] [place] [address] Jane Blanca M.D. Pain Neck (Primary Dx); Lymphadenopathy; Polyp Of Stomach And Duodenum; Headache Unspecified; Insomnia; Dry Mouth Unspecified from Last 3 Months Immunizations Immunization Administration Dates Next Due H1N1 Inj 01/07/2009 HZV (ZOSTAVAX) 07/31/2010 Influenza Whole 01/10/2014 Influenza high dose QV(65 ye ars or older) (PF) 12/14/2022,12/29/2021,12/13/2020,2019 Influenza, Unspecified 12/20/2018,2017,12/24/2016,2015,12/18/2014,01/10/2014,12/27/2012,0 12/07/2011,12/15/2010,01/07/2010, 009 PCV13 10/03/2015 PPSV23 10/01/2016 Td (Adult), adsorbed 03/23/2004 Tdap 07/31/2022,12/07/2011 influenza trivalent high dos e (HD)(PF) 01/02/2025,12/24/2023,12/31/2017,2016,01/07/2016,12/18/2014 influenza trivalent vaccine (6 months and older)(PF) 12/27/2012,12/07/2011,12/15/2010,2009 influenza vaccine QV(FLUBLOK ) (18 years or older) (PF) 12/20/2018 Family History Medical History Relation Name Comments Alcohol abuse Brother 1 Roger Fernando Colon polyps Brother 1 Roger Fernando Coronary artery disease Brother 1 Roger Fernando Heart attack Brother 1 Roger Fernando Hyperlipidemia (high cholesterol) Brother 1 Roger meda Hypertension Brother 1 Roger Fernando Stented coronary artery Brother 1 Roger Fernando Alcohol abuse Brother 2 Greg Fernando Arteriosclerosis Brother 2 Greg Fernando Hyperlipidemia (high cholesterol) Brother 2 Greg Philip ray Hypertension Brother 2 Greg Fernando car accident Brother 2 Greg Fernando Hyperlipidemia (high cholesterol) Brother 3 Ricardo Neurological disorder Brother 4 Gregorio Sudden Brother 4 Gregorio No Known Problems Daughter 1 Jaz Anxiety disorder Daughter 2 Camelia Alcohol abuse Father Leon Fernando Colon polyps Father Leon Fernando Depression Father Leon Fernando Hyperlipidemia (high cholesterol) Father Leon Fernando Hypertension Father Leon Fernando Lung cancer Father Leon Fernando Stroke Father Leon Fernando Anxiety disorder Mother Denise Fernando Blood clot Mother Denise Fernando Clotting/ bleeding disorder Mother Denise Fernando Rheumatoid arthritis (RA) Mother Denise Fernando Transient ischemic attack Mother Denise Fernando No Known Problems Sister 1 Rolanda Lung cancer Sister 2 Tara Metastatic cancer Sister 2 Tara Stage 4 sm all cell lung cancer - Dx 09/2023 Smoker Sister 2 Tara Hyperlipidemia (high cholesterol) Sister 3 Kaila Valvular heart disease Sister 3 Kaila Relation Name Status Comments Brother 1 Roger Fernando Alive Brother 2 Greg Fernando Brother 3 Ricardo Alive Brother 4 Gregorio Daughter 1 Jaz Alive Daughter 2 Camelia Alive Father Leon Fernando Mother Denise Fernando Sister 1 Rolanda Alive Sister 2 Tara Alive Sister 3 Kaila Alive Social History Tobacco Use Types Packs/Day Years Used Date Smoking Tobacco: Never Smokeless Tobacco: Never Tobacco Cessation:Counseling Given: Not Answered Alcohol Use Standard Drinks/Week Comments Yes 2 (1 standard drink = 0.6 oz pur e alcohol) [facility] Utilities Answer Date Recorded In the past 12 months has e [employer], gas, oil, or water [employer] threatened to shut off services in your [...] your living situation today? I have a [facility] place to live 09/28/2024 Education Answer Date Recorded What is the highest level of school you have completed or the highest degree you have received? Some college, no degree 11/22/2021 Comments No Sex and Gender Information Value Date Recorded Sex Assigned at Female 12/05/2020 9:17 AM CDT Legal Sex Female 3:16 AM RETAIL ACCOUNT SPECIALIST Gender Identity Female 12/08/2019 3:03 PM CDT Sexual Orientation Straight 12/08/2019 3: 03 PM CDT Last Filed Vital Signs Vital Sign Reading Time Taken Comments Blood Pressure 123/77 02/02/2025 10:31 AM RETAIL ACCOUNT SPECIALIST Pulse 90 02/02/2025 10:31 AM RETAIL ACCOUNT SPECIALIST Temperature 36.1 C (97 F) 02/02/2025 10:31 AM RETAIL ACCOUNT SPECIALIST Respiratory Rate 16 02/02/2025 10:31 AM RETAIL ACCOUNT SPECIALIST Oxygen Saturation 98% 01/25/2025 2:22 PM RETAIL ACCOUNT SPECIALIST Inhaled Oxygen Concentration - - Weight 75.5 kg (166 lb 8.9 oz) 02/02/2025 10:31 AM RETAIL ACCOUNT SPECIALIST Height 165.1 cm (5' 5) 01/25/2025 12:16 PM RETAIL ACCOUNT SPECIALIST Body Mass Index 27.72 01/25/2025 12:16 PM RETAIL ACCOUNT SPECIALIST Plan of Treatment Upcoming Encounters Date Type Department Care Team (Late st Contact Info) Description 10/01/2025 9:00 AM CDT Office Visit Department of Family Medicine, [facility], in [place], [place] [address] [place] [address] Jane Blanca M.D. [address] [address] Health Maintenance Due Date Last Done Comments CT Colonography 1950 Cologuard 1950 Hepatitis C Screening 1950 Zoster Vaccines (2 of 3) 09/25/2010 07/31/2010 RSV vaccine - (32-36 weeks) or 50+ years (1 - 1-dose 75+ series) 2024 COVID-19 Vaccine (4 - 2024- season) 2024 01/30/2021, 05/15/2020, 04/24/2020 Mammogram 09/25/2025 09/25/2024, 08/14, 08/31/2022, Additional history exists Visit: Medicare Annual Wellness 09/29/2025 09/28/2024 Visit: Annual, age 65+ (or Medicare and <65) 02/02/2026 02/02/2025 Colonoscopy 02/27/2027 02/27/2022, 06/13, 12/11/2019, Additional history exists Colorectal Cancer Surveillance 02/27/2027 Fasting Glucose for Diabetes Screening 02/03/2028 02/02/2025, 07/20/2024, 05/10/2024, Additional history exists Lipid (Cholesterol) Screening 07/20/2029 07/20/2024, 07/20/2023, 08/07/2022 DTaP,Tdap,and Td Vaccines (3 - Td or Tdap) 07/31/2032 07/31/2022, 12/07/2011, 03/23/2004 Pneumococcal vaccine (50+ years) Completed 10/01/2016, 10/03/2015 Bone Density Scan (Osteoporosis Screen) Discontinued 09/28/2024, 08/27/2017 (Performed elsewhere) Depression Screening (Annual PHQ-2) Completed 09/28/2024, 09/28/2024 Influenza Vaccine Completed 01/02/2025, , 12/14/2022, Additional history exists Fall Risk Screen (Annual) Completed 01/25/2025 IPV Vaccines Aged Out No longer eligi ble based on patient's age to complete this topic Medical Devices Implanted Type Area Collector Device Identifier Shelf Expiration Date Model / Serial / Lot [facility] 235 - [id number] Implanted:Qty : 1 on 12/11/2019 by Chase Vargas M.D. at [facility] Hardware e.g. pins/screws /rods [employer] [id number] 10/11/2022 [id number] / / [id number] [facility] 235 - [id number] Implanted:Qty : 1 on 12/11/2019 by Chase Vargas M.D. at [facility] Hardware e.g. pins/screws /rods [employer] [id number] 10/11/2022 [id number] / / [id number] [facility] 235 - [id number] Implanted:Qty : 1 on 12/11/2019 by Chase Vargas M.D. at [facility] Hardware e.g. pins/screws /rods [employer] [id number] 10/14/2022 [id number] / / [id number] [facility] 235 - [id number] Implanted:Qty : 1 on 12/11/2019 by Chase Vargas M.D. at [facility] Hardware e.g. pins/screws /rods [employer] [id number] 10/11/2022 [id number] / / [id number] [facility] 235 - [id number] Implanted:Qty : 1 on 12/11/2019 by Chase Vargas M.D. at [facility] Hardware e.g. pins/screws /rods [employer] [id number] 10/14/2022 [id number] / / [id number] Knee Implant Knee Implant Bilater al: Knee Description:Both left and ri ght knee replaced Misc Other Misc Other Left: Eye Description:Scleral Buckle Ocular Lens Ocular Lens Bilater al: Eye Procedures Procedure Name Priority Date/Time Associated Diagnosis Comments HOLTER MONITOR - IN CLINIC CORPORATE RELATIONS DIRECTOR Routine 02/02/2025 2:27 PM RETAIL ACCOUNT SPECIALIST Palpitations BASIC METABOLIC PANEL, S/P Routine 02/02/2025 11:17 AM RETAIL ACCOUNT SPECIALIST Palpitations THYROID-STIMULATING HORMONE-SENSITIVE (S-TSH) Routine 02/02/2025 11:17 AM RETAIL ACCOUNT SPECIALIST Palpitations ECG Routine 02/02/2025 11:15 AM RETAIL ACCOUNT SPECIALIST Palpitations GASTROENTEROLOGY IMAGE EXAM Routine 01/25/2025 1:15 PM RETAIL ACCOUNT SPECIALIST UPPER GI ENDOSCOPY Routine 01/25/2025 1: 14 PM RETAIL ACCOUNT SPECIALIST Polyp Of Stomach And Duodenum EGD (ESOPHAGOGASTRODUODENO SCOPY) Routine 01/25/2025 1:14 PM RETAIL ACCOUNT SPECIALIST Polyp Of Stomach And Duodenum CT NECK SOFT TISSUE WITH IV CONTRAST RAD - Routine (most inpatients and all outpatients) 01/15/2025 2:36 PM RETAIL ACCOUNT SPECIALIST Lymphadenopathy Cervical CREATININE WITH EGFR, S/P Routine 01/08/2025 10:26 AM CDT Lymphadenopathy Cervical US HEAD NECK SOFT TISSUE RAD - Routine (most inpatients and all outpatients) 01/01/2025 2:57 PM CDT Pain Neck C-REACTIVE PROTEIN (CRP), S/P Routine 12/28/2024 4:07 PM CDT Pain Neck CBC WITH DIFFERENTIAL, B Routine 12/28/2024 4:07 PM CDT Lymphadenopathy INFECTIOUS MONONUCLEOSIS, RAPID TEST, S/B Routine 12/28/2024 4:07 PM CDT Pain Neck GROUP A STREP PCR, THROAT Routine 12/28/2024 3:41 PM CDT Lymphadenopathy BI BREAST SCREENING BILATERAL WITH TOMOSYNTHESIS RAD - Routine (most inpatients and all outpatients) 09/25/2024 8:41 AM CDT Screening Mammogram Breast Cancer LIPID PANEL, S Routine 07/20/2024 8:14 AM CDT Well Adult Examination Normal COLONOSCOPY Routine 02/27/2022 10:46 AM RETAIL ACCOUNT SPECIALIST Polyp Colon Adenomatous from Last 3 Months or Most Recently Relevant to Health Maintenance Results * S-TSH (Thyroid-Stimulating Hormone - Sensitive) (02/02/2025 11:17 AM RETAIL ACCOUNT SPECIALIST) TSH, Sensitive 3.5 0.3 - 4.2 mIU/L 02/02/2025 1:22 PM RETAIL ACCOUNT SPECIALIST OWAT Blood (Blood, Venous) 02/02/2025 11:17 AM RETAIL ACCOUNT SPECIALIST 02/02/2025 12:39 PM RETAIL ACCOUNT SPECIALIST us Jane Blanca M.D. LAB BLOOD ADD-ON Final Resul t [facility] [address], [place] [address], [facility] [place] [facility] in [place] [address], [place] [address] * Basic Metabolic Panel (02/02/2025 11:17 AM RETAIL ACCOUNT SPECIALIST) Potassium, P 4.5 3.6 - 5.2 mmol/L 02/02/2025 1:15 PM RETAIL ACCOUNT SPECIALIST OWAT Sodium, P 143 135 - 145 mmol/L 02/02/2025 1:15 PM RETAIL ACCOUNT SPECIALIST OWAT Chloride, P 107 98 - 107 mmol/L 02/02/2025 1:15 PM RETAIL ACCOUNT SPECIALIST OWAT Bicarbonate, P 25 22 - 29 mmol/L 02/02/2025 1:15 PM RETAIL ACCOUNT SPECIALIST OWAT Anion Gap, P 11 7 - 15 02/02/2025 1:15 PM RETAIL ACCOUNT SPECIALIST OWAT BUN (Blood Urea Nitrogen), P 13 6 - 21 mg/dL 02/02/2025 1:15 PM RETAIL ACCOUNT SPECIALIST OWAT Creatinine 0.67 0.59 - 1.04 mg/dL 02/02/2025 1:15 PM RETAIL ACCOUNT SPECIALIST OWAT Estimated GFR (eGFR) >90 >=60 mL/min/BSA 02/02/2025 1:15 PM RETAIL ACCOUNT SPECIALIST OWAT Comment: Estimated GFR calculated using the 2020 CKD_EPI creatinine equation. Calcium, Total, P 9.6 8.8 - 10.2 mg/dL 02/02/2025 1:15 PM RETAIL ACCOUNT SPECIALIST OWAT Glucose, P 103 70 - 140 mg/dL 02/02/2025 1:15 PM RETAIL ACCOUNT SPECIALIST OWAT Blood (Blood, Venous) 02/02/2025 11:17 AM RETAIL ACCOUNT SPECIALIST 02/02/2025 12:39 PM RETAIL ACCOUNT SPECIALIST Jane Blanca M.D. LAB BLOOD ADD-ON Final Resul t Performing Organization Address [facility] Co de Phone Number [facility] [address] [place] [address], [place] [facility] [place] [address] [place] [address] * ECG 12 Lead (02/02/2025 11:15 AM RETAIL ACCOUNT SPECIALIST) Ventricular Rate ECG/Min 80 BPM MUSE CA Interval 136 ms MUSE QRSD Interval 122 ms MUSE QT Interval 406 ms MUSE QTC Interval 468 ms MUSE P [place] 56 degrees MUSE R [place] -28 degrees MUSE T Wave [place] -1 degrees MUSE 02/02/2025 11:1 5 AM RETAIL ACCOUNT SPECIALIST 02/02/2025 11:39 AM RETAIL ACCOUNT SPECIALIST Impressions MUSE - 02/02/2025 11:39 AM RETAIL ACCOUNT SPECIALIST Sinus rhythm with sinus arrhythmia Right [...] ECG ORDERABLES Final Result Performing Organization Address City/[facility]/ZIP Co de Phone Number MUSE NA * Duodenum, Entire examined duodenum Upper GI endoscopy-Gastroenterology Image Exam (01/25/2025 1:15 PM RETAIL ACCOUNT SPECIALIST) 01/25/2025 1:14 PM RETAIL ACCOUNT SPECIALIST Narrative IIMS - 01/25/2025 2:04 PM RETAIL ACCOUNT SPECIALIST This order has been created and auto-finalized to support the import of images acquired without order. The clinical documentation to support these images can be found on the encounter that produced images. us Provider Not In System IMG NON RAD IMAGING PROCE DURES Final Result IIMS NA * Upper GI Endoscopy (01/25/2025 1:14 PM RETAIL ACCOUNT SPECIALIST) Anatomical Region Laterality Modality Digital Radiogra phy 01/25/2025 1:14 PM RETAIL ACCOUNT SPECIALIST Impressions 01/25/2025 1:54 PM RETAIL ACCOUNT SPECIALIST Post-op Diagnoses: - A tattoo was seen in the duodenum. The tattoo site appeared normal. There was no evidence of residual polyp tissue. - Normal examined duodenum. - Normal stomach. - Normal esophagus. - No specimens collected. Narrative 01/25/2025 1:54 PM RETAIL ACCOUNT SPECIALIST Héctor 6 GI GI Patient Name: Magnolia [...] Jane Blanca M.D. GI PROCEDURE ORDERABLES Juanita l Result * EGD (EsophagoGastroDuodenoscopy) (01/25/2025 1:14 PM RETAIL ACCOUNT SPECIALIST) Anatomical Region Laterality Modality Digital Radiogra phy 01/25/2025 1:14 PM RETAIL ACCOUNT SPECIALIST us Jane Blanca M.D. GI PROCEDURE ORDERABLES Juanita l Result * CT Neck Soft Tissue with IV Contrast (01/15/2025 2:36 PM RETAIL ACCOUNT SPECIALIST) Anatomical Region Laterality Modality Neck, Neuroradiology RST LOS , Neuroradiology ARZ LOS, Neuroradiology FLA LOS N/A Computed Tomography 01/15/2025 2:28 PM RETAIL ACCOUNT SPECIALIST Impressions 01/15/2025 2:58 PM RETAIL ACCOUNT SPECIALIST No abnormal neck mass or adenopathy. Narrative 01/15/2025 2:58 PM RETAIL ACCOUNT SPECIALIST EXAM: CT NECK SOFT TISSUE WITH IV [...] abnormal neck mass or adenopathy. us Jaz Pal P.A.-C. IMG CT PROCEDURES Final [...] P.A.-C. LAB BLOOD ADD-ON Final Re sult [facility] [address] [place] [address], [facility] [place] [facility] [place] [address] [place] [address] * US Head Neck Soft Tissue (01/01/2025 [...] IMG US PROCEDURES Final Resu lt * Infectious Mononucleosis, Rapid Test (12/28/2024 4:07 PM CDT) Pathologist [facility] Infectious [place] Test, B Negative Negative 12/28/2024 6:11 PM CDT OWAT Blood (Blood, Venous) 12/28/2024 4:07 PM CDT 12/28/2024 5:53 PM CDT Jane Blanca M.D. LAB MICROBIOLOGY - BLOOD ORD ERABLES Final Result [facility] [address] [address], [facility] [place] [address] [place] [id number] * CBC with Differential, Blood (12/28/2024 4:07 [...] M.D. LAB BLOOD ADD-ON Final Resul t [facility] [address] [place] [address], [facility] [place] [place] [address] [place] [address] * (ABNORMAL) CRP (C-Reactive Protein) (12/28/2024 4:07 PM CDT) C-Reactive Protein (CRP), P 5.1(H) <5.0 mg/L 12/28/2024 6:05 PM CDT [facility] Blood (Blood, Venous) 12/28/2024 4:07 PM CDT 12/28/2024 5:48 PM CDT Jane Blanca M.D. LAB BLOOD ADD-ON Final Resul t Performing Organization Address City/[facility]/ZIP Co de Phone Number [facility] [address] [place] [address], [facility] [place] [place] [address] [place] [address] * Group A Streptococcus PCR, Throat (12/28/2024 3:41 PM CDT) Group A Streptococcus PCR, Throat Negative Negative 12/28/2024 6:31 PM CDT OW Swab (Throat) 12/28/2024 3:4 1 PM CDT 12/28/2024 5:46 PM CDT us Jane Blanca M.D. LAB MICROBIOLOGY - GENERAL O RDERABLES Final Result Performing Organization Address City/[facility]/ZIP Co de Phone Number [facility] [address] [place] [address], [facility] [place] [address] [place] [address] * BI Breast Screening Bilateral with Tomosynthesis (09/25/2024 8:41 AM CDT) Anatomical Region Laterality Modality Breast, Breast Imaging RST L OS, Breast Imaging ARZ LOS, Breast Imaging FLA LOS Bilateral Mammography Impressions 09/25/2024 9:09 AM CDT Negative. RECOMMENDATION: Annual Screening Mammogram ASSESSMENT: BI-RADS: 1: Negative. Narrative 09/25/2024 9:09 AM CDT EXAM: BI BREAST SCREENING BILATERAL WITH TOMOSYNTHESIS Current study was evaluated with a Computer Aided Detection (CAD) system. INDICATION: Screening mammogram. COMPARISON: Prior exam(s) were available and reviewed for comparison. DENSITY: b. There are scattered areas of fibroglandular density. FINDINGS: No mammographic findings of malignancy. Procedure Note Jose G Molina M.D. - 09/25/2024 EXAM: BI BREAST SCREENING BILATERAL WITH TOMOSYNTHESIS Current study was evaluated with a Computer Aided Detection (CAD) system. INDICATION: Screening mammogram. COMPARISON: Prior exam(s) were available and reviewed for comparison. DENSITY: b. There are scattered areas of fibroglandular density. FINDINGS: No mammographic findings of malignancy. IMPRESSION: Negative. RECOMMENDATION: Annual Screening Mammogram ASSESSMENT: BI-RADS: 1: Negative. us Jane Blanca M.D. IMG BI PROCEDURES Final Resu lt * Lipid Panel (07/20/2024 8:14 AM CDT) Triglycerides 64 mg/dL 07/20/2024 10:53 AM CDT [facility] Comment: ----REFERENCE VALUE---- Normal: <150 mg/dL Borderline High: 150-199 mg/dL High: 200-499 mg/dL Very High: > or =500 mg/dL Cholesterol, Total 139 mg/dL 2024 10:53 AM CDT [facility] Comment: ----REFERENCE VALUE---- Desirable: < 200 mg/dL Borderline High: 200 - 239 mg/dL High: > or = 240 mg/dL Cholesterol, LDL, Calculated 68 mg/dL 07/20/2024 10:53 AM CDT [facility] Comment: ----REFERENCE VALUE---- Desirable: <100 mg/dL Above Desirable: 100-129 mg/dL Borderline High: 130-159 mg/dL High: 160-189 mg/dL Very High: >=190 mg/dL ----ADDITIONAL INFORMATION---- LDL cholesterol calculated using the Raphael/NIH equation. Cholesterol, HDL 58 >=50 mg/dL 07/21/19 10:53 AM CDT [facility] Cholesterol, Non-HDL, Calculated 81 mg/dL 07/20/2024 10:53 AM CDT [facility] Comment: ----REFERENCE VALUE---- Desirable: <130 mg/dL Above Desirable: 130-159 mg/dL Borderline High: 160-189 mg/dL High: 190-219 mg/dL Very High: > or =220 mg/dL Fasting (8 HR or more) Yes 07/20/2024 8:14 AM CDT [facility] Blood (Blood, Venous) 07/20/2024 8:14 AM CDT 07/20/2024 10:27 AM CDT us Jane Blanca M.D. LAB BLOOD ADD-ON Final Resul t [facility] [address] [place] [address], [place] [facility] [place] [address] [place] [address] * Colonoscopy (02/27/2022 10:46 AM RETAIL ACCOUNT SPECIALIST) Anatomical Region Laterality Modality Digital Radiogra phy 02/27/2022 10:4 6 AM RETAIL ACCOUNT SPECIALIST Impressions 02/27/2022 1:00 PM RETAIL ACCOUNT SPECIALIST Post-op Diagnoses: - Diverticulosis in the entire examined colon. - Post-polypectomy scar in the cecum with endoclip and granulation tissue. No specimens collected. - The examination was otherwise normal. - The distal rectum and anal verge are normal on retroflexion view. Narrative 02/27/2022 1:00 PM RETAIL ACCOUNT SPECIALIST Héctor 6 GI GI Patient Name: Magnolia Blank Date of : 1950 Age: 71 Gender: Female Procedure Date: 02/27/2022 Procedure: Colonoscopy Providers: Moy Haque MD, Hannah Trivedi MD (Fellow) Referring Provider: Wil Sweeney MD Pre-op Diagnoses: High risk colon cancer surveillance: Personal history of colonic polyps Recommendation: - PATHOLOGY/MICROBIOLOGY FOLLOW-UP: The ordering provider is responsible for reviewing results from specimens obtained during this endoscopic procedure and communicating the findings to the patient. If guidance is needed for interpreting endoscopic findings or pathology results, please consider a gastroenterology e-consult. - Repeat colonoscopy in 5 years for surveillance. Findings: The perianal and digital rectal examinations were normal. Multiple small and large-mouthed diverticula were found in the entire colon. A small post polypectomy scar was found in the cecum with a clip and granulation tissue. There was no residual polypoid tissue. No biopsies or other specimens were collected for this exam. The exam was otherwise without abnormality. The retroflexed view of the distal rectum and anal verge was normal and showed no anal or rectal abnormalities. Procedural Details: The patient was seen, evaluated, [...] and oxygen saturations were monitored continuously. The Colonoscope was introduced under direct vision through the anus and advanced to the cecum, identified by appendiceal orifice and ileocecal valve. The colonoscopy was performed without difficulty. The patient tolerated the procedure well. The quality of the bowel preparation was evaluated using the BBPS ([place] Bowel Preparation Scale) with scores of: Right Colon = 3 (entire mucosa seen well with no residual staining, small fragments of stool or opaque liquid) and Left Colon = 2 (minor amount of residual staining, small fragments of stool and/or opaque liquid, but mucosa seen well). The total BBPS score equals 5. The quality of the bowel preparation was good. Estimated Blood Loss: Estimated blood loss: none. Complications: No immediate complications. Sedation: Anesthesia was administered by an anesthesia professional. The following parameters were monitored: oxygen saturation, heart rate, blood pressure, respiratory rate, EKG, adequacy of pulmonary ventilation, and response to care. Attending Participation: I was present and participated during the entire procedure, including non-angelo portions. Moy Haque MD 02/27/2022 12:59:51 PM This report has been signed electronically. Number of Addenda: 0 Wil Sweeney M.D. 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 [address] [place] [phone] PCP - General Family Medicine 07/16/22 [facility] 09/29/23
--- OUTSIDE RECORDS SUMMARY | 2025-02-06 20:28 | XMS_ITS | Encounter Summary ---
Author Organization [facility] Address [address] [place] [address] Care Team Providers Care Kiln Transfer Operator Name Role Phone Jane Blanca M.D. Primary Care Provider Encounter Details Date Type Department Care Team (Late st Contact Info) Description 02/02/2025 Results Follow-Up Department of Family Medicine, [facility] in [place], [place] [address] [place] [address] Suzanne Wallace, LCaroleeP.N. [address] [place] [address] S-TSH (Thyroid-Stimulating Hormone - Sensitive), Basic Metabolic Panel Social History Tobacco Use Types Packs/Day Years Used Date Smoking Tobacco: Never Smokeless Tobacco: Never Alcohol Use Standard Drinks/Week Comments Yes 2 (1 standard drink = 0.6 oz pur e alcohol) [facility] Utilities Answer Date Recorded In the past 12 months has th e electric, gas, oil, or water company [...] your living situation today? I have a [facility] place to live 09/28/2024 Education Answer Date Recorded What is the highest level of school you have completed or the highest degree you have received? 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 [address] [place] [address] documented as of this encounter Visit Diagnoses Not on filedocumented in this encounter Care Teams Kiln Transfer Operator Relationship Specialty Start Date End Date Jane Blanca M.D. [address] [place] [phone] PCP - General Family Medicine 07/16/22 [facility] Dentistry 09/29/23 documented as of this encounter
[2025-02-06 20:32] VITALS: BP 162/95; PULSE 118; RESP 18; TEMP 36.7; O2SAT 94; BMI 27.5
[2025-02-06 20:50] VITALS: O2SAT 99
--- NOTE | 2025-02-06 20:51 | ED.GENADULT ---
HPI - General Adult General Chief complaint: Arrhythmia/Palpitations Stated complaint: high pulse Time Seen by Provider: 02/06/25 20:51 History of Present Illness HPI narrative: Pt states she had finished dinner and was sitting in a chair, began feeling lightheaded and nauseous. States she just turned in her holter monitor for these episodes. States her pulse was 111, this has been happening for awhile. Denies chest pain, shortness of breath. Denies recent illness. 74-year-old woman presenting to the emergency department with concern of rapid heart rate. Was watching the news having finished dinner this evening just sitting in her chair with sudden onset of rapid heart rate up to 111. Nauseated and lightheaded. Not particularly short of breath and without chest pain. No cough or cold symptoms. Recently had 24 hours of monitoring through [facility] without event that she just turned in. Some years back also with uncaptured tachycardia. On EKG I see during our interview that she has a right bundle branch block. She reports is that is known to have right bundle. History of subacute thyroiditis is noted. Generally quite healthy. Quite active physically without difficulty. Related Data Home Medications ?Medication ?Instructions ?Recorded ?Confirmed epinephrine 0.3 mg/0.3 mL 0.3 mg IM Q5-15M PRN 02/22/22 02/28/22 injection, auto-injector (EpiPen) simvastatin 5 mg tablet 5 mg PO 02/22/22 02/28/22 aspirin 81 mg tablet,delayed 81 mg PO QDAY 02/28/22 02/06/25 release (Adult Aspirin Regimen) Previous Rx's ?Medication ?Instructions ?Recorded ciprofloxacin HCl 500 mg tablet 500 mg PO BID #20 tabs 03/04/22 Allergies Allergy/AdvReac Type Severity Reaction Status Date / Time tree nut Allergy Severe Anaphylaxis Verified 02/28/22 10:11 clindamycin Allergy Unknown Verified 02/28/22 10:11 amoxicillin AdvReac Intermediate Hives Verified 02/28/22 10:11 Review of Systems Status of ROS: Reports: 6 or more systems reviewed and unremarkable except as noted in History and below [facility] Surgical History Status post breast biopsy ?Z98.890 - Other specified postprocedural states (ICD-10) History of eye surgery ?Z98.890 - Other specified postprocedural states (ICD-10) Status post total bilateral knee replacement ?Z96.653 - Presence of artificial knee joint, bilateral (ICD-10) Status post bilateral cataract extraction ?Z98.41 - Cataract extraction status, right eye (ICD-10) ?Z98.42 - Cataract extraction status, left eye (ICD-10) Social History Smoking Status: Never smoker Do you use any of these nicotine containing products: None Second hand tobacco smoke exposure: No How often do you have a drink containing alcohol: never How often do you have six or more drinks on one occasion: Never AUDIT-C Alcohol total score: 0 Non-prescribed substance use: denies use service: No Exam Narrative: Exam Narrative: Very pleasant. With good energy. NAD. Skin is warm and dry. Well-perfused peripherally without edema. Lungs are clear. Breathing easily. Heart in elevated to tachycardic rate. Appears to be in a regular rhythm. No murmur. Lungs are clear. Const: Vital Signs, click to edit/add: Vital Signs - 24 hr 02/06/25 20:32 02/06/25 20:50 02/06/25 22:30 Temperature 98.0 F Pulse Rate [Pulse Oximeter] 118 H 80 Respiratory Rate 18 16 Blood Pressure [Ri ght Upper Arm] 162/95 H 124/73 Pulse Oximetry 94 99 99 Oxygen Delivery Me thod Room Air Room Air 02/06/25 23:14 Temperature 98.0 F Pulse Rate [Pulse Oximeter] 80 Respiratory Rate 16 Blood Pressure [Ri ght Upper Arm] 124/73 Pulse Oximetry Oxygen Delivery Me thod Documenting provider has reviewed patient's vital signs: yes Course Vital Signs Vital signs: Initial Vital Signs Temperature 98.0 F 02/06/25 20:32 Temperature Source Temporal Artery Scan 02/06/25 20:32 Pulse Rate 118 H 02/06/25 20:32 Respiratory Rate 18 02/06/25 20:32 Blood Pressure 162/95 H 02/06/25 20:32 Blood Pressure Mean 117 H 02/06/25 20:32 Blood Pressure Position Supine 02/06/25 20:32 Pulse Oximetry 94 02/06/25 20:32 Oxygen Delivery Method Room Air 02/06/25 20:32 Vital Signs Temperature 98.0 F 02/06/25 20:32 Pulse Rate 118 H 02/06/25 20:32 Respiratory Rate 18 02/06/25 20:32 Blood Pressure 162/95 H 02/06/25 20:32 Pulse Oximetry 94 02/06/25 20:32 Oxygen Delivery Method Room Air 02/06/25 20:32 Temperature 98.0 F 02/06/25 23:14 Pulse Rate 80 02/06/25 23:14 Respiratory Rate 16 02/06/25 23:14 Blood Pressure 124/73 02/06/25 23:14 Pulse Oximetry 99 02/06/25 22:30 Oxygen Delivery Method Room Air 02/06/25 22:30 Medications Administered Medications: Discontinued Medications Generic Name Dose Route Start Last Admin Trade Name Freq PRN Reason Stop Dose Admin Sodium Chloride 1,000 mls @ 1,000 mls/hr 02/06/25 21:15 02/06/25 22:31 0.9 % Sodium Chloride 1000 Ml IV 02/06/25 22:14 Infused .Q1H ONE Infusion Ondansetron HCl 4 mg 02/06/25 21:15 02/06/25 21:46 Ondansetron 2 Mg/Ml Inj IVP 02/06/25 21:16 4 mg ONCE ONE Administration Medical Decision Making MDM Narrative Medical decision making narrative: I suspect is having episodes of supraventricular tachycardia. Might be worth rechecking labs. Would monitor on marine firer for further event. Certainly could be atrial fibrillation as well. She is symptomatic and might require further intervention if these episodes are becoming more frequent. Otherwise I do not think this is evidence of thyrotoxicosis nor related to medication. Would give IV hydration and hopefully bring down this heart rate a little bit. Monitor for further symptoms. She would appreciate something for nausea which seems to be lingering. EKG at this point does show sinus tachycardia. Chemistries are WNL. Normal high sensitivity troponin. Normal hemoglobin Overall improved during time in the emergency department. Stable and improved vitals. Did place a ZIO patch for longer-term monitoring and hopefully well finally capture 1 of these events. See patient discharge plan for further discussion Stay well-hydrated. Continue usual exercise. If you have a recurrence, of course indicate that in your documentation with this ZIO patch. If it is continuing you might try some Valsalva maneuvers as discussed/demonstrated. If this is continuing and you are becoming increasingly uncomfortable, please return to the emergency department. I would expect results to be available within a couple of days after you turn in your ZIO patch. If it has been a week and you have had numerous episodes you probably do not need to complete 2 weeks. Medical Records Medical records reviewed: Yes I reviewed the patient's medical records Lab Data Labs: Lab Results 02/06/25 02/06/25 Range/Units 20:49 21:15 Hgb 14.0 (12.0-16.0) gm/dL Sodium 139 (135-149) mmol/L Potassium 3.8 (3.6-5.1) mmol/L Chloride 103 (96-114) mmol/L Carbon Dioxide 25 (20-32) mmol/L Anion Gap 11 (7-15) mEq/L BUN 17 (7-30) mg/dL Creatinine 0.7 (0.5-1.5) mg/dL Estimated Creat Clear 43.74 Estimated GFR 90 ml/min Glucose 117 H (60-115) mg/dL Calcium 9.3 (8.4-10.6) mg/dL POC Troponin I High Sensi 3.7 (2.9-13.0) ng/L C-Reactive Protein < 0.5 L (0.5-1.0) mg/dL NT-Pro-B Natriuret Pep 103 (See Note) pg/mL ECG Data Attestation: I personally reviewed and interpreted this ECG as follows: (Sinus tachycardia. Right bundle branch block. Rate of 104) Discharge Plan Discharge Clinical Impression: Tachycardia Patient Disposition: Home w/ Parent or Adult Condition: Improved Additional Instructions: Stay well-hydrated. Continue usual exercise. If you have a recurrence, of course indicate that in your documentation with this ZIO patch. If it is continuing you might try some Valsalva maneuvers as discussed/demonstrated. If this is continuing and you are becoming increasingly uncomfortable, please return to the emergency department. I would expect results to be available within a couple of days after you turn in your ZIO patch. If it has been a week and you have had numerous episodes you probably do not need to complete 2 weeks. Prescriptions: No Action simvastatin 5 mg tablet 5 mg PO Patient Comments: TAKE ONE TABLET BY MOUTH ONE TIME DAILY AT BEDTIME epinephrine [EpiPen] 0.3 mg/0.3 mL auto-injector 0.3 mg IM Q5-15M PRN Rx Instructions: do not exceed 3 doses per episode ciprofloxacin HCl 500 mg tablet 500 mg PO BID Qty: 20 0RF aspirin [Adult Aspirin Regimen] 81 mg tablet,delayed release (DR/EC) 81 mg PO QDAY Follow Up/Referrals: Provider,Not a Local [Primary Care Provider, Family Practice] Stand Alone Forms: [email or web address] Info Instructions
[2025-02-06 21:36] LABS: Hemoglobin* 14.0 gm/dL (12.0-16.0)
[2025-02-06 21:44] LABS: Chloride* 103 mmol/L (96-114); Potassium* 3.8 mmol/L (3.6-5.1); Sodium* 139 mmol/L (135-149)
[2025-02-06] MEDS: ONDANSETRON 2 MG/ML inj 4 MG IVP (21:46)
[2025-02-06 21:48] LABS: Anion Gap 11 mEq/L (7-15); Blood Urea Nitrogen* 17 mg/dL (7-30); Calcium* 9.3 mg/dL (8.4-10.6); Carbon Dioxide* 25 mmol/L (20-32); Creatinine* 0.7 mg/dL (0.5-1.5); Est. Creatinine Clearance* 43.74; Estimated Glomerular Filt Rate 90 ml/min; Glucose* 117 mg/dL (60-115)
[2025-02-06 22:01] LABS: NT Pro B Type NatriureticPept* 103 pg/mL (See Note)
[2025-02-06 22:30] VITALS: BP 124/73; PULSE 80; RESP 16; O2SAT 99
[2025-02-06 23:14] VITALS: BP 124/73; PULSE 80; RESP 16; TEMP 36.7
== END 2025-02-06 23:15 | disposition home or self-care (01) ==
PROVIDERS: Emergency Provider Family Medicine
DX: I47.10 Supraventricular tachycardia, unspecified (principal)
CPT/HCPCS: 36415; 80048; 83880; 84484; 85018; 86140; 93005; 93246; 94761; 96361; 96374; 99284; J2405; J7030